=== PATIENT | male | born 1940 | race Two or more races ===

== ENCOUNTER 2020-03-05 11:52 | Inpatient (IN) | payer OTHER ==
[~2020-03-05] VITALS: Ht 167.6 cm; Wt 76.5 kg
[2020-03-05 12:54] LABS: Basophils # (auto) 0 10 ^3/uL (0-0.2); Basophils % (auto) 0.1 % (0.0-2.0); Eosinophils # (auto) 0 10 ^3/uL (0-0.8); Eosinophils % (auto) 0.1 % (0.0-7.0); Hematocrit 50.4 % (41.0-53.0); Hemoglobin 16.9 g/dL (13.5-17.5); Lymphocytes # (auto) 0.7 10 ^3/uL (0.4-5.4); Lymphocytes % (auto) 14.2 % (10.0-50.0); Mean Corpuscular Hemoglobin 29.3 pg (28.0-32.0); Mean Corpuscular Hgb Conc. 33.6 g/dL (32.0-36.0); Mean Corpuscular Volume 87.4 fL (80.0-100.0); Monocytes # (auto) 0.4 10 ^3/uL (0-1.3); Monocytes % (auto) 9.2 % (0.0-12.0); Neutrophils # (auto) 3.7 10 ^3/uL (1.6-8.6); Neutrophils % (auto) 76.4 % (37.0-80.0); Nucleated Red Blood Cells % 0.2 %; Platelet Count (auto) 97 10^3/uL (140-450); Red Blood Cells 5.76 10^6/uL (4.5-5.90); Red Cell Distribution Width 14.3 % (11.8-14.3); White Blood Cell 4.9 10^3/uL (4.4-10.8)
[2020-03-05] MEDS ORDERED: DexAMETHasone SOD PHOS 10MG/1ML VIAL INJ IV ONE (13:30)
[2020-03-05] MEDS ORDERED: SODIUM CHLORIDE 0.9% 1,000 ML IV SCH (14:00)
[2020-03-05] MEDS ORDERED: NITROGLYCERIN 0.4 MG SL TAB SL PRN (14:00)
[2020-03-05] MEDS: ALBUTEROL SULF HFA 90MCG INH 200DOSE IN SCH ×2 (14:00→21:57)
[2020-03-05] MEDS ORDERED: MORPHINE SULF INJ 2 MG/ML SYRINGE 1ML IV PRN ×2 (14:00→14:30)
[2020-03-05] MEDS ORDERED: traMADol HCL 50 MG TAB PO PRN (14:30)
[2020-03-05] MEDS ORDERED: TEMAZEPAM 15 MG CAP PO PRN (14:30)
[2020-03-05] MEDS ORDERED: ONDANSETRON HCL 4 MG/2 ML VIAL IV PRN (14:30)
[2020-03-05] MEDS ORDERED: DEXTROSE (50%) 50ML SYRG IV PRN (14:30)
[2020-03-05 14:52] LABS: Albumin 2.5 g/dL (3.4-5.0); Calcium 7.3 mg/dL (8.5-10.1); Magnesium 2.1 mg/dL (1.6-2.6)
[2020-03-05 15:00] VITALS: BP 148/71
[2020-03-05 15:00] LABS: BUN/Creatinine Ratio 19.6; Bilirubin, Total 0.5 mg/dL (0.2-1.0)
[2020-03-05 15:17] LABS: Urine Bacteria NONE SEEN /hpf (None Seen); Urine Blood 1+ /uL (Negative); Urine Specific Gravity 1.019 (1.001-1.035); Urine WBC 1 /hpf (0 - 3)
[2020-03-05 15:36] LABS: Lactic Acid w/Reflex 2.3 mmol/L (0.4-2.0)
[2020-03-05 16:30] VITALS: BP 138/74
[2020-03-05] MEDS: ACCU-CHEK COMFORT CURVE STRIP VI SCH ×2 (16:37→22:01)
[2020-03-05] MEDS: InsuLIN REG 1unit/0.01ml Soln (100units/ml) SC SCH ×2 (16:37→22:01)
[2020-03-05] MEDS ORDERED: INSUINJ37 SC (19:21)
[2020-03-05] MEDS ORDERED: SITA50TA PO (19:21)
[2020-03-05] MEDS ORDERED: GLIP5TAB12 PO (19:21)
[2020-03-05] MEDS ORDERED: ATOR40TA52 PO (19:21)
[2020-03-05 19:32] VITALS: BP 138/74
--- NOTE | 2020-03-05 20:00 | NUR ---
Opening Shift Note Assumed care of patient. Awake, alert and oriented x4. No S/S of distress/SOB or pain. Instructed on POC and to call for assist PRN. Pt is on room air with even and unlabored respirations. Bed locked, in lowest position, call light within reach, side rails up x2. will continue to monitor for changes Q1hr and PRN.
[2020-03-05] MEDS: FAMOTIDINE 20 MG TAB PO SCH (21:54)
[2020-03-05] MEDS: BUDESONIDE (INHALATION) 180 MCG IH IN SCH (21:57)
[2020-03-05 22:00] VITALS: BP 172/69
[2020-03-06] VITALS (7 sets, daily range): BP systolic 132–160; BP diastolic 68–89
[2020-03-06] MEDS: InsuLIN REG 1unit/0.01ml Soln (100units/ml) SC SCH ×4 (06:36→22:15)
[2020-03-06] MEDS: ACCU-CHEK COMFORT CURVE STRIP VI SCH ×4 (06:37→22:16)
[2020-03-06] MEDS: ALBUTEROL SULF HFA 90MCG INH 200DOSE IN SCH ×3 (06:49→22:33)
[2020-03-06] MEDS: BUDESONIDE (INHALATION) 180 MCG IH IN SCH ×2 (06:50→22:33)
[2020-03-06 07:42] LABS: Basophils # (auto) 0 10 ^3/uL (0-0.2); Basophils % (auto) 0.1 % (0.0-2.0); Eosinophils # (auto) 0 10 ^3/uL (0-0.8); Hematocrit 46.3 % (41.0-53.0); Hemoglobin 15.3 g/dL (13.5-17.5); Lymphocytes # (auto) 0.5 10 ^3/uL (0.4-5.4); Lymphocytes % (auto) 14.6 % (10.0-50.0); Mean Corpuscular Hgb Conc. 33.1 g/dL (32.0-36.0); Mean Corpuscular Volume 87.5 fL (80.0-100.0); Monocytes # (auto) 0.4 10 ^3/uL (0-1.3); Monocytes % (auto) 10.1 % (0.0-12.0); Neutrophils # (auto) 2.6 10 ^3/uL (1.6-8.6); Neutrophils % (auto) 75.2 % (37.0-80.0); Nucleated Red Blood Cells % 0.1 %; Platelet Count (auto) 98 10^3/uL (140-450); Red Blood Cells 5.29 10^6/uL (4.5-5.90); Red Cell Distribution Width 14.1 % (11.8-14.3); White Blood Cell 3.5 10^3/uL (4.4-10.8)
[2020-03-06 07:47] LABS: Albumin 2.3 g/dL (3.4-5.0); Calcium 7.5 mg/dL (8.5-10.1); Potassium 4.3 mmol/L (3.5-5.1)
[2020-03-06 07:50] LABS: BUN/Creatinine Ratio 21.5
[2020-03-06 07:52] LABS: Bilirubin, Total 0.4 mg/dL (0.2-1.0); Total Protein 6.3 g/dL (6.4-8.2)
[2020-03-06] MEDS: ZINC SULFATE 220mg CAP or TAB PO SCH (09:32)
[2020-03-06] MEDS: CHOLECALCIFEROL (VITD3) 2,000 UNIT CAP PO SCH (09:32)
[2020-03-06] MEDS: levoFLOXacin 500MG 100 ML IV SCH (09:32)
[2020-03-06] MEDS: ASCORBIC ACID 1,000 MG TAB PO SCH (09:32)
[2020-03-06] MEDS: FAMOTIDINE 20 MG TAB PO SCH (09:32)
[2020-03-06] MEDS: ENOXAPARIN SOD 30 MG/0.3 ML SYRINGE SC SCH (09:39)
[2020-03-06] MEDS ORDERED: DexAMETHasone SOD PHOS 10MG/1ML VIAL INJ IV SCH (10:00)
--- NOTE | 2020-03-06 14:00 | NUR ---
Paged Dr simeon per Dr Christopher's request to start remdesevir.
--- NOTE | 2020-03-06 17:00 | NUR ---
per dr simeon call pharmacy and see if tod meets criteria for remdesevir
--- NOTE | 2020-03-06 17:46 | NUR ---
Per pharmacist patient does not meet criteria for remdesevir. Patient o2 sat 96% on room air, no fever.
--- NOTE | 2020-03-07 01:45 | NUR ---
Received report Received report from CHRISTOPHER Singh RN. Patient is resting in bed comfortably, patient given pillow for added comfort. No s/s of pain, SOB, or distress noted at this time. Discussed plan of care with patient. Call light within reach, HOB semi fowlers, bed in lowest locked position x2 side rails up. Will continue to monitor.
[2020-03-07 05:00] VITALS: BP 155/88
[2020-03-07] MEDS: ACCU-CHEK COMFORT CURVE STRIP VI SCH ×4 (06:34→21:34)
[2020-03-07] MEDS: InsuLIN REG 1unit/0.01ml Soln (100units/ml) SC SCH ×4 (06:37→21:44)
[2020-03-07 06:47] LABS: Potassium 4.4 mmol/L (3.5-5.1)
[2020-03-07 06:59] LABS: Albumin 2.7 g/dL (3.4-5.0); BUN/Creatinine Ratio 25.4; Bilirubin, Total 0.4 mg/dL (0.2-1.0); Calcium 8.2 mg/dL (8.5-10.1); Total Protein 6.8 g/dL (6.4-8.2)
[2020-03-07] MEDS: ALBUTEROL SULF HFA 90MCG INH 200DOSE IN SCH ×3 (07:27→22:08)
[2020-03-07] MEDS: BUDESONIDE (INHALATION) 180 MCG IH IN SCH ×2 (07:28→22:08)
[2020-03-07 09:00] VITALS: BP 143/73
[2020-03-07] MEDS: levoFLOXacin 500MG 100 ML IV SCH (09:22)
[2020-03-07] MEDS: ZINC SULFATE 220mg CAP or TAB PO SCH (09:22)
[2020-03-07] MEDS: ASCORBIC ACID 1,000 MG TAB PO SCH (09:23)
[2020-03-07] MEDS: CHOLECALCIFEROL (VITD3) 2,000 UNIT CAP PO SCH (09:23)
[2020-03-07] MEDS: FAMOTIDINE 20 MG TAB PO SCH (09:23)
[2020-03-07] MEDS: ENOXAPARIN SOD 30 MG/0.3 ML SYRINGE SC SCH (09:23)
--- NOTE | 2020-03-07 12:40 | NUR ---
PATIENTS OXYGEN SATURATIONS WHEN AMBULATING AT 78%. INSTRUCTED TO WEAR OXYGEN 2L NC WHEN AMBULATING.
--- NOTE | 2020-03-07 12:53 | NUR ---
SPOKE TO Julian JAIMES. INFORMED OF PATIENT STATUS INCLUDING DESATURATION TO 78% DURING AMBULATION. RECEIVED NEW ORDERS. SEE EMAR.
--- NOTE | 2020-03-07 12:55 | NUR ---
REPORT GIVEN TO PASCALE CHEN.
[2020-03-07 13:00] VITALS: BP 137/77
--- NOTE | 2020-03-07 13:00 | NUR ---
RECEIVED REPORT FROM NEHAL Lacey RN. [facility]
[2020-03-07] MEDS ORDERED: DexAMETHasone 4 MG TAB PO ONE (13:15)
--- NOTE | 2020-03-07 13:15 | NUR ---
PT IS ALERT ORIENTED X4, RESTING IN BED COMFORTABLY, IN ROOM AIR, NO DSITRESS NOTED, ABLE TO VERBALIS HIS DEMANDS, SELF REPOSITION, CALL LIGHT WITHIN REACH, CONTINUE CARE
[2020-03-07 17:00] VITALS: BP 148/67
--- NOTE | 2020-03-07 18:25 | NUR ---
PT CONTINUE STABLE, CONTINUE MONITORING
[2020-03-07] MEDS: INSULIN LANTUS (GLARGINE) 1 /0.01ml (100units/ml) SC SCH (21:44)
[2020-03-07 22:07] VITALS: BP 156/91
[2020-03-07] MEDS: ACETAMINOPHEN 500 MG TAB PO PRN (23:28)
[2020-03-08] MEDS: cloNIDine HCL 0.1 MG TAB PO PRN (05:25)
[2020-03-08] MEDS: ACCU-CHEK COMFORT CURVE STRIP VI SCH ×4 (06:01→21:12)
[2020-03-08] MEDS: INSULIN LANTUS (GLARGINE) 1 /0.01ml (100units/ml) SC SCH ×2 (06:02→21:15)
[2020-03-08] MEDS: InsuLIN REG 1unit/0.01ml Soln (100units/ml) SC SCH ×4 (06:02→21:15)
--- NOTE | 2020-03-08 07:13 | NUR ---
closing note pt resting in semi fowlers with HOB at 30 degrees. no s/s of respiratory distress at this time. no c/o pain. endorsed care to day shift RN Akila.
[2020-03-08 08:00] VITALS: BP 155/87
--- NOTE | 2020-03-08 08:00 | NUR ---
ASSESSMENT NOTE PT IS ALERT ORIENTED X4, RESTING IN BED COMFORTABLY, IN ROOM AIR, NO DISTRESS NOTED, ABLE TO SELF REPOSITION AND VERBALIS HIS NEEDS, PT IS BILINGUAL ABLE TO UNDERSTAND INDONESIAN, FALL RISK PRECAUTIONS, CALL LIGHT WITHIN REACH
[2020-03-08] MEDS: ALBUTEROL SULF HFA 90MCG INH 200DOSE IN SCH ×3 (08:04→22:18)
[2020-03-08] MEDS: BUDESONIDE (INHALATION) 180 MCG IH IN SCH ×2 (08:04→22:18)
[2020-03-08 09:03] VITALS: BP 154/84
[2020-03-08] MEDS: DexAMETHasone 4 MG TAB PO SCH (09:24)
[2020-03-08] MEDS: ZINC SULFATE 220mg CAP or TAB PO SCH (09:24)
[2020-03-08] MEDS: FAMOTIDINE 20 MG TAB PO SCH (09:24)
[2020-03-08] MEDS: ASCORBIC ACID 1,000 MG TAB PO SCH (09:25)
[2020-03-08] MEDS: CHOLECALCIFEROL (VITD3) 2,000 UNIT CAP PO SCH (09:25)
[2020-03-08] MEDS: ENOXAPARIN SOD 30 MG/0.3 ML SYRINGE SC SCH (09:25)
--- NOTE | 2020-03-08 11:00 | NUR ---
ROOM AIR SATURATION PT AMBULATED AROUND IN HIS ROOM, AND OUT OF HIS ROOM, SAT AT 85 % IN ROOM AIR 3 L NC APPLIED PT SAT ON 93%
--- NOTE | 2020-03-08 11:44 | NUR ---
Nutrition Assessment Est energy needs 1510- 1888 kcal (20-25 kcal/kg BW 75.5kg) Est protein needs 60-76g (0.8-1g/kg BW 75.5kg) Will reassess prn. Addendum: 03/08/20 at [address] Amended: Links added.
--- NOTE | 2020-03-08 12:00 | NUR ---
DR JAIMES AT BED SIDE FOLLOWING UP ON PT, INFORM PT THAT HE WILL ORDER A CTA AND FOR POSSIBLE DISCHARGE TOMORROW, DR JAIMES ENCOURAGE PT TO CONTINUE USE THE INCENTIVE SPIROMETER
[2020-03-08 12:26] VITALS: BP 147/87
--- NOTE | 2020-03-08 15:15 | NUR ---
OUT TO RADIOLOGY VIA WHEELCHAIR FOR CHEST CT AND VENOUS DOPPLER
--- NOTE | 2020-03-08 16:09 | NUR ---
PAGE DR JAIMES REGARDING VENOUS DOPPLER RESULTS
--- NOTE | 2020-03-08 16:10 | NUR ---
PT IS BACK TO HIS ROOM, STABLE, OXYGEN 3 NC, CONTINUE MONITORING
--- NOTE | 2020-03-08 16:26 | NUR ---
DR JAIMES CALLED BACK SAID TO D/C LOVENOX, AND HAVE PHARMACY PUT THE DVT DOSE FOR LOVENOX
[2020-03-08 16:41] VITALS: BP 146/83
--- NOTE | 2020-03-08 18:32 | NUR ---
PT CONTINUE STABLE, CONTINUE MONITORING
[2020-03-08 20:37] VITALS: BP 146/83
[2020-03-08 21:30] VITALS: BP 129/71
[2020-03-09] MEDS: cloNIDine HCL 0.1 MG TAB PO PRN ×3 (04:55→22:39)
[2020-03-09 05:00] VITALS: BP 166/85
[2020-03-09] MEDS: ACCU-CHEK COMFORT CURVE STRIP VI SCH ×4 (06:07→22:13)
[2020-03-09] MEDS: ALBUTEROL SULF HFA 90MCG INH 200DOSE IN SCH ×3 (06:09→21:53)
[2020-03-09] MEDS: BUDESONIDE (INHALATION) 180 MCG IH IN SCH ×2 (06:09→21:53)
[2020-03-09] MEDS: InsuLIN REG 1unit/0.01ml Soln (100units/ml) SC SCH ×4 (06:10→22:14)
[2020-03-09] MEDS: INSULIN LANTUS (GLARGINE) 1 /0.01ml (100units/ml) SC SCH ×2 (06:10→22:14)
[2020-03-09 06:12] LABS: Basophils # (auto) 0 10 ^3/uL (0-0.2); Basophils % (auto) 0.1 % (0.0-2.0); Eosinophils # (auto) 0 10 ^3/uL (0-0.8); Hematocrit 49.8 % (41.0-53.0); Hemoglobin 16.6 g/dL (13.5-17.5); Lymphocytes # (auto) 0.4 10 ^3/uL (0.4-5.4); Lymphocytes % (auto) 5.1 % (10.0-50.0); Mean Corpuscular Hemoglobin 29.1 pg (28.0-32.0); Mean Corpuscular Hgb Conc. 33.4 g/dL (32.0-36.0); Mean Corpuscular Volume 87.1 fL (80.0-100.0); Monocytes # (auto) 0.4 10 ^3/uL (0-1.3); Monocytes % (auto) 6.4 % (0.0-12.0); Neutrophils # (auto) 6.1 10 ^3/uL (1.6-8.6); Neutrophils % (auto) 88.4 % (37.0-80.0); Nucleated Red Blood Cells % 0.1 %; Platelet Count (auto) 148 10^3/uL (140-450); Red Blood Cells 5.72 10^6/uL (4.5-5.90); Red Cell Distribution Width 14.2 % (11.8-14.3); White Blood Cell 6.9 10^3/uL (4.4-10.8)
[2020-03-09 06:36] LABS: Potassium 4.6 mmol/L (3.5-5.1)
[2020-03-09 06:44] LABS: BUN/Creatinine Ratio 26.9; Calcium 8.7 mg/dL (8.5-10.1)
--- NOTE | 2020-03-09 07:20 | NUR ---
closing note pt resting in semi fowlers with HOB at 30 degrees. pt is on 6L simple mask. o2 saturation is 93%. endorsed care to day shift RN Maria Luisa.
--- NOTE | 2020-03-09 07:40 | NUR ---
OPENING NOTES ASSUMED CARE OF PT. ALERT AND ORIENTED. NO S/S OF SOB/DISTRESS NOTED. BED SET TO LOWEST POSITION/LOCKED. BEDSIDE RAILS UP X2. CALL LIGHT WITHIN REACH. INSTRUCTED PT TO CALL FOR ASSISTANCE. UPDATED ON POC. PT VERBALIZED UNDERSTANDING. WILL CONTINUE TO MONITOR Q1HR AND PRN FOR CHANGES.
[2020-03-09 09:00] VITALS: BP 154/89
[2020-03-09] MEDS: ZINC SULFATE 220mg CAP or TAB PO SCH (09:25)
[2020-03-09] MEDS: DexAMETHasone 4 MG TAB PO SCH (09:25)
[2020-03-09] MEDS: levoFLOXacin 500MG 100 ML IV SCH (09:25)
[2020-03-09] MEDS: FAMOTIDINE 20 MG TAB PO SCH (09:26)
[2020-03-09] MEDS: ASCORBIC ACID 1,000 MG TAB PO SCH (09:26)
[2020-03-09] MEDS: CHOLECALCIFEROL (VITD3) 2,000 UNIT CAP PO SCH (09:26)
[2020-03-09] MEDS: ENOXAPARIN SOD 80 MG/0.8ML SYRINGE SC SCH (09:27)
[2020-03-09 13:00] VITALS: BP 150/86
[2020-03-09 17:00] VITALS: BP 164/100
[2020-03-09] MEDS: ACETAMINOPHEN 500 MG TAB PO PRN (18:03)
--- NOTE | 2020-03-09 19:40 | NUR ---
Opening Shift Note Assumed care of patient, awake and alert x4. Patient denies pain or shortness of breath at this time. No sign/symptoms of distress noted or verbalized at this time. Instructed on plan of care and encouraged patient to call for assistance as needed, patient verbalized understanding. Incentive spirometer noted at the bedside, encouraged patient to use incentive spirometer at least 10 times every hour, while awake, patient verbalized understanding. Bed is locked in lowest position, side rails x2 are up, call light is within reach, and bed alarm is on.
[2020-03-09 22:00] VITALS: BP 165/95
--- NOTE | 2020-03-09 23:07 | NUR ---
Received Call From Dr. Sanchez Received call from Dr. Sanchez and updated on patient status. Orders received to start patient on Remdesivir 200 mg IV piggyback over 2 hours on day 1 and Remdesivir 100mg IV piggyback over 2 hours days 2-5. Dr. Sanchez made aware that pharmacy is gone for the night. Per Dr. Sanchez okay to start Remdesivir in the morning. Orders read back and verified. Will carry out orders as received.
[2020-03-10 05:00] VITALS: BP 165/91
[2020-03-10] MEDS: cloNIDine HCL 0.1 MG TAB PO PRN ×2 (05:20→18:36)
[2020-03-10] MEDS: INSULIN LANTUS (GLARGINE) 1 /0.01ml (100units/ml) SC SCH ×2 (06:13→21:13)
[2020-03-10] MEDS: ACCU-CHEK COMFORT CURVE STRIP VI SCH ×4 (06:13→21:10)
[2020-03-10] MEDS: InsuLIN REG 1unit/0.01ml Soln (100units/ml) SC SCH ×4 (06:14→21:14)
--- NOTE | 2020-03-10 06:20 | NUR ---
Placed on Oxymizer Patient's oxygen saturation sustaining between 89-91% on 6L/min NC. Patient placed on Oxymizer 6L/min. SPO2 increased to 95%.
[2020-03-10] MEDS: ALBUTEROL SULF HFA 90MCG INH 200DOSE IN SCH ×3 (06:37→20:43)
[2020-03-10] MEDS: BUDESONIDE (INHALATION) 180 MCG IH IN SCH ×2 (06:37→20:43)
--- NOTE | 2020-03-10 06:46 | NUR ---
Tim Spoke with pharmacist Noe regarding order received from Dr. Sanchez to start patient on Remdesivir today. Per pharmacist Noe, he will start the process.
--- NOTE | 2020-03-10 06:50 | NUR ---
VQ Scan Attempted to call nuclear medicine regarding pending VQ scan. Left message to give this RN a call back.
[2020-03-10 07:56] LABS: Calcium 8.8 mg/dL (8.5-10.1); Potassium 5.1 mmol/L (3.5-5.1)
[2020-03-10 08:00] VITALS: BP 144/79
[2020-03-10 08:08] LABS: BUN/Creatinine Ratio 30.2; CRP High Sensitivity 3.27 mg/dL (< 0.3)
--- NOTE | 2020-03-10 09:20 | NUR ---
VQ SCAN CALLED [facility] RE: VQ SCAN. PER NM TECH THEY WILL TRY AND DO THE SCAN, BUT WILL BE A UNDIAGNOSTIC SCAN.
[2020-03-10] MEDS: DexAMETHasone 4 MG TAB PO SCH (10:29)
[2020-03-10] MEDS: ZINC SULFATE 220mg CAP or TAB PO SCH (10:29)
[2020-03-10] MEDS: ENOXAPARIN SOD 80 MG/0.8ML SYRINGE SC SCH (10:30)
[2020-03-10] MEDS: ASCORBIC ACID 1,000 MG TAB PO SCH (10:30)
[2020-03-10] MEDS: FAMOTIDINE 20 MG TAB PO SCH (10:30)
[2020-03-10] MEDS: CHOLECALCIFEROL (VITD3) 2,000 UNIT CAP PO SCH (10:30)
[2020-03-10] MEDS: ACETAMINOPHEN 500 MG TAB PO PRN (11:52)
[2020-03-10 12:00] VITALS: BP 154/79
--- NOTE | 2020-03-10 15:08 | NUR ---
Assessment Patient is a 79-year-old male, who is alert and orient. Patient cognitive abilities are intact. Patient stated prior to admission at [facility] he is ambulatory, patient stated that he can do all ADLs independently. Patient stated that he lives with his (Arlette [phone]). Patient stated that he is retired and has social security for monthly income. Patient stated that he will return home post discharge. Patient stated that his has transportation for post discharge. Patient stated that his and family is his support system. Patient stated that his is receptive to receive information on Advance Directive. Discharge planning: Patient will follow up with PCP for post discharge diagnosis. SW will provide Advance Directive forms for patient to fill out. Patient has no post discharge needs identified at this moment. Addendum: 03/10/20 at 1508 by TRAVIS MEDEIROS Amended: Links added.
[2020-03-10 17:00] VITALS: BP 160/95
[2020-03-10] MEDS ORDERED: REMDESIVIR 200 MG in NS 210ml LOADING DOSE ADULT IV ONE (17:00)
--- NOTE | 2020-03-10 17:15 | NUR ---
REMDESIVIR PRE-INFUSION VS BP: 160/95 MMHG HR: 72 BPM SPO2: 99% WILL CONTINUE TO MONITOR.
--- NOTE | 2020-03-10 17:30 | NUR ---
REMDESIVIR 15 MIN-INFUSION VS BP: 158/89 MMHG HR: 63 BPM SPO2: 99% NO S/S OF SOB/DISTRESS NOTED. WILL CONTINUE TO MONITOR.
--- NOTE | 2020-03-10 18:31 | NUR ---
REMDESIVIR POST-INFUSION VS BP: 182/86 MMHG HR: 66 BPM SPO2: 95% NO S/S OF SOB/DISTRESS NOTED. WILL CONTINUE TO MONITOR.
[2020-03-10] MEDS ORDERED: DOCUSATE SOD 100 MG CAP PO PRN (20:00)
--- NOTE | 2020-03-10 21:33 | NUR ---
Spoke with Dr. Díaz RE: Critical Blood Sugar Dr. Díaz made aware that patient's blood sugar is 417 and has received 10 units of Lantus and 10 units of Insulin R per sliding scale. Dr. Díaz made aware that patient is on a mild sliding scale ACHS. Per Dr. Díaz follow protocol. Protocol has been initiated and followed. No new orders received at this time. Will continue to monitor patient. Patient denies excessive thirst, blurry vision, dizziness, or headache at this time. Addendum: 03/10/20 at 2206 by CHELSEA HAY RN RN Dr. Díaz is covering for Katelyn Farris
[2020-03-10 22:00] VITALS: BP 155/100
--- NOTE | 2020-03-10 22:30 | NUR ---
Dr. Sanchez at Bedside Dr. Sanchez at bedside.
--- NOTE | 2020-03-11 00:16 | NUR ---
Blood Sugar Reassessment Blood sugar rechecked and found to be 314 at this time.
[2020-03-11 04:52] VITALS: BP 156/85
[2020-03-11] MEDS: InsuLIN REG 1unit/0.01ml Soln (100units/ml) SC SCH ×4 (06:06→23:16)
[2020-03-11] MEDS: INSULIN LANTUS (GLARGINE) 1 /0.01ml (100units/ml) SC SCH ×2 (06:07→23:16)
[2020-03-11] MEDS: ACCU-CHEK COMFORT CURVE STRIP VI SCH ×4 (06:10→23:12)
[2020-03-11] MEDS: ALBUTEROL SULF HFA 90MCG INH 200DOSE IN SCH ×3 (06:52→21:43)
[2020-03-11] MEDS: BUDESONIDE (INHALATION) 180 MCG IH IN SCH ×2 (06:52→21:43)
[2020-03-11 07:07] LABS: Albumin 2.3 g/dL (3.4-5.0); BUN/Creatinine Ratio 29.9; Calcium 8.7 mg/dL (8.5-10.1); Potassium 4.9 mmol/L (3.5-5.1)
[2020-03-11 07:10] LABS: Bilirubin, Total 0.5 mg/dL (0.2-1.0); Total Protein 6.5 g/dL (6.4-8.2)
[2020-03-11 08:55] VITALS: BP 154/76
[2020-03-11] MEDS: ACETAMINOPHEN 500 MG TAB PO PRN (09:19)
[2020-03-11] MEDS: DexAMETHasone 4 MG TAB PO SCH (09:44)
[2020-03-11] MEDS: ZINC SULFATE 220mg CAP or TAB PO SCH (09:44)
[2020-03-11] MEDS: FAMOTIDINE 20 MG TAB PO SCH (09:44)
[2020-03-11] MEDS: levoFLOXacin 500MG 100 ML IV SCH (09:44)
[2020-03-11] MEDS: ENOXAPARIN SOD 80 MG/0.8ML SYRINGE SC SCH (09:45)
[2020-03-11] MEDS: ASCORBIC ACID 1,000 MG TAB PO SCH (09:45)
[2020-03-11] MEDS: CHOLECALCIFEROL (VITD3) 2,000 UNIT CAP PO SCH (09:45)
--- NOTE | 2020-03-11 10:32 | NUR ---
patient family called for information regarding patient, however no password has been set up, I let the family know that they could call the patient and create a password and then I would be able to discuss the patient. Family stated they just spoke to him and he sounded tired so they would call back later and make a password.
[2020-03-11] MEDS ORDERED: INSULIN LANTUS (GLARGINE) 1 /0.01ml (100units/ml) SC ONE (13:00)
[2020-03-11] MEDS ORDERED: amLODIPine BESYLATE 5 MG TAB PO ONE (13:00)
[2020-03-11] MEDS ORDERED: POLYETHYLENE GLYCOL 17 GM PWDR PO PRN (13:00)
--- NOTE | 2020-03-11 14:16 | NUR ---
Nutrition Followup Note: Wt 74.1 kg Pt is covid positive in isolation. pt is currently on CCHO 45 gm diet with adequate Po of > 75% x 4 per RN doc. Est energy needs 1510- 1888 kcal (20-25 kcal/kg BW 75.5kg) Est protein needs 60-76g (0.8-1g/kg BW 75.5kg) Will reassess prn. Labs: ALB 2.3 L, BUN 59 H CREAT 1.97 H GLU 227 H BM: Pt with 1 BM today per Rn note Skin: BS 21 low risk, full details in menagerie caretaker note PES: Altered nutrition related lab values r.t current chronic medical condition aeb elevated RFTs, hyperglycemia, hopalb Comments: Will continue to mobnitor PO intake, skin status, labs. F/u mod 3-5 days Rec: 1) refer to CDE on DC 2) continue current plan of care
[2020-03-11] MEDS: REMDESIVIR 100mg in NS 230ml DAILYx4DAYS (NO VENT) IV SCH (16:52)
[2020-03-11 17:00] VITALS: BP 145/75
[2020-03-11 17:05] VITALS: BP 138/71
[2020-03-11] MEDS: ATORVASTATIN 20 MG TAB PO SCH (17:35)
--- NOTE | 2020-03-11 18:13 | NUR ---
patient completed dose of Remdesevir without incidence
--- NOTE | 2020-03-11 21:43 | NUR ---
PT RINSED OUT HIS MOUTH POST PULMICORT TX Addendum: 03/11/20 at 2315 by SHAMAR CHINO RT Amended: Links added.
[2020-03-11 22:00] VITALS: BP 153/89
[2020-03-12 00:56] VITALS: BP 153/87
[2020-03-12 05:00] VITALS: BP 137/81
[2020-03-12 06:36] LABS: Albumin 2.2 g/dL (3.4-5.0); BUN/Creatinine Ratio 29.3; Calcium 8.7 mg/dL (8.5-10.1); Potassium 4.6 mmol/L (3.5-5.1)
[2020-03-12 06:39] LABS: Bilirubin, Total 0.7 mg/dL (0.2-1.0); Total Protein 6.4 g/dL (6.4-8.2)
[2020-03-12] MEDS: InsuLIN REG 1unit/0.01ml Soln (100units/ml) SC SCH ×4 (07:00→21:38)
[2020-03-12] MEDS: ACCU-CHEK COMFORT CURVE STRIP VI SCH ×4 (07:08→21:32)
[2020-03-12] MEDS: INSULIN LANTUS (GLARGINE) 1 /0.01ml (100units/ml) SC SCH ×2 (07:11→21:37)
[2020-03-12 09:00] VITALS: BP 145/92
[2020-03-12] MEDS: amLODIPine BESYLATE 5 MG TAB PO SCH (09:32)
[2020-03-12] MEDS: FAMOTIDINE 20 MG TAB PO SCH (09:32)
[2020-03-12] MEDS: DexAMETHasone 4 MG TAB PO SCH (09:32)
[2020-03-12] MEDS: CHOLECALCIFEROL (VITD3) 2,000 UNIT CAP PO SCH (09:32)
[2020-03-12] MEDS: ASCORBIC ACID 1,000 MG TAB PO SCH (09:32)
[2020-03-12] MEDS: ZINC SULFATE 220mg CAP or TAB PO SCH (09:32)
[2020-03-12] MEDS: ENOXAPARIN SOD 80 MG/0.8ML SYRINGE SC SCH (09:33)
[2020-03-12] MEDS: ALBUTEROL SULF HFA 90MCG INH 200DOSE IN SCH ×3 (09:34→20:44)
[2020-03-12] MEDS: BUDESONIDE (INHALATION) 180 MCG IH IN SCH ×2 (09:34→20:44)
[2020-03-12 13:00] VITALS: BP 151/79
--- NOTE | 2020-03-12 16:15 | NUR ---
PATIENT CONSENTED ON [facility]ASMA AND IS IN AGREEMENT.
--- NOTE | 2020-03-12 16:45 | NUR ---
PER DR CLEMENTE, CALL HIM WHEN PLASMA BECOMES AVAILABLE AND HE WILL DETERMINE IF PATIENT NEEDS IT. (ORDER ENTERED COMMUNICATION ORDER)
[2020-03-12 17:00] VITALS: BP 148/83
[2020-03-12] MEDS: ATORVASTATIN 20 MG TAB PO SCH (17:08)
[2020-03-12] MEDS: REMDESIVIR 100mg in NS 230ml DAILYx4DAYS (NO VENT) IV SCH (17:08)
[2020-03-12] MEDS: ACETAMINOPHEN 500 MG TAB PO PRN (19:58)
[2020-03-12 22:00] VITALS: BP 159/83
[2020-03-13 05:00] VITALS: BP 139/80
--- NOTE | 2020-03-13 06:03 | NUR ---
DR CLEMENTE PAGED PLASMA IS AVAILABLE , PER COMMUNICATION ORDER, WAS TO BE PAGED BEFORE ADMINISTRATING PLASMA TO DETERMINE WHETHER PATIENT NEEDS TO BE INFUSED.
[2020-03-13] MEDS: ALBUTEROL SULF HFA 90MCG INH 200DOSE IN SCH ×3 (06:15→23:00)
[2020-03-13] MEDS: BUDESONIDE (INHALATION) 180 MCG IH IN SCH ×2 (06:15→23:00)
[2020-03-13] MEDS: ACCU-CHEK COMFORT CURVE STRIP VI SCH ×4 (06:24→21:46)
[2020-03-13] MEDS: InsuLIN REG 1unit/0.01ml Soln (100units/ml) SC SCH ×4 (06:24→21:50)
[2020-03-13] MEDS: INSULIN LANTUS (GLARGINE) 1 /0.01ml (100units/ml) SC SCH ×2 (06:29→21:49)
[2020-03-13 09:00] VITALS: BP 134/71
[2020-03-13] MEDS: FAMOTIDINE 20 MG TAB PO SCH (10:25)
[2020-03-13] MEDS: DexAMETHasone 4 MG TAB PO SCH (10:25)
[2020-03-13] MEDS: ENOXAPARIN SOD 80 MG/0.8ML SYRINGE SC SCH (10:26)
[2020-03-13] MEDS: CHOLECALCIFEROL (VITD3) 2,000 UNIT CAP PO SCH (10:26)
[2020-03-13] MEDS: levoFLOXacin 500MG 100 ML IV SCH (10:26)
[2020-03-13] MEDS: ZINC SULFATE 220mg CAP or TAB PO SCH (10:26)
[2020-03-13] MEDS: ASCORBIC ACID 1,000 MG TAB PO SCH (10:26)
[2020-03-13] MEDS: amLODIPine BESYLATE 5 MG TAB PO SCH (10:36)
[2020-03-13 11:29] LABS: Basophils # (auto) 0 10 ^3/uL (0-0.2); Basophils % (auto) 0.2 % (0.0-2.0); Eosinophils # (auto) 0 10 ^3/uL (0-0.8); Eosinophils % (auto) 0.4 % (0.0-7.0); Hematocrit 49.1 % (41.0-53.0); Hemoglobin 16.7 g/dL (13.5-17.5); Lymphocytes # (auto) 0.4 10 ^3/uL (0.4-5.4); Lymphocytes % (auto) 3.5 % (10.0-50.0); Mean Corpuscular Hemoglobin 29.2 pg (28.0-32.0); Mean Corpuscular Volume 85.9 fL (80.0-100.0); Monocytes # (auto) 0.4 10 ^3/uL (0-1.3); Monocytes % (auto) 4.3 % (0.0-12.0); Neutrophils # (auto) 9.6 10 ^3/uL (1.6-8.6); Neutrophils % (auto) 91.6 % (37.0-80.0); Nucleated Red Blood Cells % 0.6 %; Platelet Count (auto) 178 10^3/uL (140-450); Red Blood Cells 5.72 10^6/uL (4.5-5.90); Red Cell Distribution Width 14.3 % (11.8-14.3); White Blood Cell 10.5 10^3/uL (4.4-10.8)
[2020-03-13 11:46] LABS: Albumin 2.1 g/dL (3.4-5.0); Calcium 8.7 mg/dL (8.5-10.1); Potassium 4.8 mmol/L (3.5-5.1)
[2020-03-13 11:49] LABS: BUN/Creatinine Ratio 35.6; Bilirubin, Total 0.6 mg/dL (0.2-1.0); Total Protein 6.3 g/dL (6.4-8.2)
[2020-03-13 13:00] VITALS: BP 123/82
[2020-03-13 13:11] VITALS: BP 123/82
[2020-03-13 17:00] VITALS: BP 145/84
[2020-03-13] MEDS: REMDESIVIR 100mg in NS 230ml DAILYx4DAYS (NO VENT) IV SCH (17:18)
[2020-03-13] MEDS: ATORVASTATIN 20 MG TAB PO SCH (17:26)
[2020-03-13] MEDS: ACETAMINOPHEN 500 MG TAB PO PRN (18:50)
[2020-03-13 22:00] VITALS: BP 141/72
[2020-03-14 05:00] VITALS: BP 158/85
[2020-03-14] MEDS: ACCU-CHEK COMFORT CURVE STRIP VI SCH ×3 (06:39→16:38)
[2020-03-14] MEDS: INSULIN LANTUS (GLARGINE) 1 /0.01ml (100units/ml) SC SCH (06:44)
[2020-03-14] MEDS: InsuLIN REG 1unit/0.01ml Soln (100units/ml) SC SCH ×3 (06:45→16:39)
[2020-03-14] MEDS: ALBUTEROL SULF HFA 90MCG INH 200DOSE IN SCH ×4 (07:12→20:33)
[2020-03-14] MEDS: BUDESONIDE (INHALATION) 180 MCG IH IN SCH ×2 (07:12→20:33)
[2020-03-14 07:27] LABS: Potassium 4.7 mmol/L (3.5-5.1)
[2020-03-14 07:33] LABS: Albumin 2.3 g/dL (3.4-5.0); BUN/Creatinine Ratio 30.7; Calcium 8.7 mg/dL (8.5-10.1)
[2020-03-14 07:39] LABS: Bilirubin, Total 0.7 mg/dL (0.2-1.0); Total Protein 6.6 g/dL (6.4-8.2)
[2020-03-14 09:00] VITALS: BP 160/72
[2020-03-14] MEDS: ZINC SULFATE 220mg CAP or TAB PO SCH (10:50)
[2020-03-14] MEDS: ASCORBIC ACID 1,000 MG TAB PO SCH (10:50)
[2020-03-14] MEDS: DexAMETHasone 4 MG TAB PO SCH (10:50)
[2020-03-14] MEDS: FAMOTIDINE 20 MG TAB PO SCH (10:50)
[2020-03-14] MEDS: ENOXAPARIN SOD 80 MG/0.8ML SYRINGE SC SCH (10:51)
[2020-03-14] MEDS: CHOLECALCIFEROL (VITD3) 2,000 UNIT CAP PO SCH (10:51)
[2020-03-14] MEDS: amLODIPine BESYLATE 5 MG TAB PO SCH (10:52)
--- NOTE | 2020-03-14 12:47 | NUR ---
Nutrition Followup Note: Wt 76.5kg Pt is still covid positive. Pt is in covid isolation wing unable to reach pt through pt room phone. Pt is with a good appetite aeb pt with 86% of po intake x 2 days per RN note. Est energy needs 1510- 1888 kcal (20-25 kcal/kg BW 75.5kg) Est protein needs 60-76g (0.8-1g/kg BW 75.5kg) Will reassess prn. Labs: ALB 2.3 L, BUN 61H, Creat 1.99H, GLUC 197H BM: Pt with 1 BM 03/13 per Rn note Skin: BS 21 low risk, full details in care clinician note PES: Altered nutrition related lab values r.t current chronic medical condition aeb elevated RFTs, hyperglycemia, hopalb Comments: Will continue to mobnitor PO intake, skin status, labs. F/u mod 3-5 days Rec: 1) refer to CDE on DC 2) continue current plan of care
[2020-03-14 13:00] VITALS: BP 150/76
[2020-03-14 13:12] LABS: Hematocrit 52.5 % (41.0-53.0); Hemoglobin 16.9 g/dL (13.5-17.5); Mean Corpuscular Hemoglobin 28.4 pg (28.0-32.0); Mean Corpuscular Hgb Conc. 32.3 g/dL (32.0-36.0); Platelet Count (auto) 203 10^3/uL (140-450); Red Blood Cells 5.97 10^6/uL (4.5-5.90); Red Cell Distribution Width 14.4 % (11.8-14.3); White Blood Cell 9.6 10^3/uL (4.4-10.8)
[2020-03-14 13:47] LABS: Basophils % (manual) 0 (0.0-2.0); Blast Cells 0; Promyelocytes % 0; Reactive Lymphocytes 0
--- NOTE | 2020-03-14 14:36 | NUR ---
ALBUTEROL MDI THERAPY HELD AT THIS TIME DUE TO PT WITH OCCASIONAL RUNS OF TACHYCARDIA 130'S. BREATH SOUNDS CLEAR/DIM T/O. SPO2 93% ON 10LPM OXYMIZER. NO S/S OF DISTRESS. RN MADE AWARE.
[2020-03-14 14:52] LABS: Band Neutrophils % (manual) 1; Eosinophils % (manual) 1 (0-7); Lymphocytes % (manual) 4 (10.0-50.0); Metamyelocytes % 1; Monocytes % (manual) 4 (0-12); Myelocytes % 2
--- NOTE | 2020-03-14 16:00 | NUR ---
PAGED DR Shahid CERVANTES TO NOTIFY HIM OF FIB RVR.
--- NOTE | 2020-03-14 16:30 | NUR ---
PAGED DR Shahid CERVANTES TO NOTIFY HIM OF A FIB RVR HEART RATE 130-165. NO SIGNS OF DISTRESS BP 134/77
[2020-03-14 17:00] VITALS: BP 134/77
[2020-03-14] MEDS: REMDESIVIR 100mg in NS 230ml DAILYx4DAYS (NO VENT) IV SCH (17:00)
[2020-03-14] MEDS ORDERED: METOPROLOL TARTRATE 25 MG TAB PO SCH (17:00)
[2020-03-14] MEDS: ATORVASTATIN 20 MG TAB PO SCH (17:30)
[2020-03-14] MEDS ORDERED: APIXABAN 5 MG TAB PO SCH (17:30)
[2020-03-14 17:33] VITALS: BP 134/77
--- NOTE | 2020-03-14 19:33 | NUR ---
Spoke with Dr. Díaz RE: Heart Rate Dr. Díaz who is covering for ShahidDandre Анна was notified that patient is in atrial fibrillation with heart rate sustaining between 130s-140s. Dr. Díaz made aware that patient received Lopressor 25mg PO at 17:[address] Díaz also made aware that patient has a discharge order to go home with [facility] hosp[facility] tonight at 20:30. Per Dr. Díaz okay to send patient home tonight with hospice with current heart rate. No new orders received at this time. Patient is laying in bed with even and unlabored respirations. No sign/symptoms of distress noted or verbalized at this time. Patient denies pain or shortness of breath at this time.
--- NOTE | 2020-03-14 20:33 | NUR ---
Discharge Discharge instructions given as ordered by day shift RN Laura and reinforced by this RN. Encourage to follow up with primary care provider as instructed. All questions and concerns addressed. Patient verbalized understanding. Medication reconciliation form completed and copy given to patient. IV removed with catheter intact, pressure dressing applied. Telemetry unit returned to ICU. Patient transported by [facility] with all personal belongings on 10L/min Oxymizer. No sign/symptoms of distress noted at time of departure.
[2020-03-15] MEDS ORDERED: ZINC220T6 PO (15:56)
[2020-03-15] MEDS ORDERED: METO25TA5 PO (15:56)
[2020-03-15] MEDS ORDERED: DEXA6TAB6 PO (15:56)
[2020-03-15] MEDS ORDERED: APIX5TAB OR (15:56)
[2020-03-15] MEDS ORDERED: ASCO500T11 GT (15:56)
[2020-03-15] MEDS ORDERED: LEVO500T21 PO (15:56)
[2020-03-15] MEDS ORDERED: CHOL20007 OR (15:56)
--- NOTE | 2020-03-16 17:47 | NUR ---
1736 03/16/20 - I was not made aware of pending SS consult for hospice evaluation.
== END 2020-03-14 20:33 | disposition hospice, home (50) | DRG 177 ==
LOC: ER 11:52 → TELE 11:53 → TELE-EAST 15:47
PROVIDERS: ADMIT Internal Medicine; ATTEND Hospitalist
PROC: XW033E5 Introduction of Remdesivir Anti-infective into Peripheral Vein, Percutaneous Approach, New Technology Group 5 (ICD-10-PCS; principal; 2020-03-11)
PROC: XW13325 Transfusion of Convalescent Plasma (Nonautologous) into Peripheral Vein, Percutaneous Approach, New Technology Group 5 (ICD-10-PCS; 2020-03-13)
DX: U07.1 COVID-19 (principal); J12.89 Other viral pneumonia; J96.01 Acute respiratory failure with hypoxia; I82.411 Acute embolism and thrombosis of right femoral vein; J47.0 Bronchiectasis with acute lower respiratory infection; I82.431 Acute embolism and thrombosis of right popliteal vein; E11.21 Type 2 diabetes mellitus with diabetic nephropathy; E78.5 Hyperlipidemia, unspecified; N18.30 Chronic kidney disease, stage 3 unspecified; E11.65 Type 2 diabetes mellitus with hyperglycemia; I48.91 Unspecified atrial fibrillation; E11.22 Type 2 diabetes mellitus with diabetic chronic kidney disease; I12.9 Hypertensive chronic kidney disease with stage 1 through stage 4 chronic kidney disease, or unspecified chronic kidney disease; Z66 Do not resuscitate
CPT/HCPCS: 36415; 36600; 71045; 71250; 80048; 80053; 81001; 82728; 82805; 82962; 83036; 83605; 83735; 84484; 85007; 85025; 85027; 85379; 86141; 86850; 86900; 86901; 87040; 87426; 93005; 93970; 94640; 96372; 96374; 99291; G0378; J1100; J1815; J1956

== ENCOUNTER 2020-03-20 09:59 | Inpatient (IN) | payer OTHER ==
[~2020-03-20] VITALS: Ht 170.2 cm; Wt 74.0 kg
[2020-03-20] VITALS (7 sets, daily range): BP systolic 138–145; BP diastolic 54–91
[~2020-03-20 09:59] MED LIST: APIX5TAB OR; ASCO500T11 GT; ATOR40TA52 PO; CHOL20007 OR; DEXA6TAB6 PO; GLIP5TAB12 PO; INSUINJ37 SC; LEVO500T21 PO; METO25TA5 PO; SITA50TA PO; ZINC220T6 PO
[2020-03-20] MEDS ORDERED: DexAMETHasone SOD PHOS 10MG/1ML VIAL INJ IV ONE (10:30)
[2020-03-20] MEDS ORDERED: MORPHINE SULF INJ 2 MG/ML SYRINGE 1ML IV PRN (10:45)
[2020-03-20] MEDS ORDERED: NITROGLYCERIN 0.4 MG SL TAB SL PRN (10:45)
[2020-03-20] MEDS ORDERED: FUROSEMIDE 20 MG/2 ML VIAL IV ONE ×2 (11:00→14:15)
[2020-03-20] MEDS ORDERED: ALBUAER3 IN (11:07)
[2020-03-20] MEDS ORDERED: FERR-20 PO (11:07)
[2020-03-20] MEDS ORDERED: PRED20TA2 PO (11:10)
[2020-03-20] MEDS ORDERED: LORA0.5T20 PO (11:10)
[2020-03-20] MEDS ORDERED: ACET-1156 PO (11:16)
[2020-03-20] MEDS ORDERED: POM IN (11:19)
[2020-03-20] MEDS ORDERED: DEXA6TAB PO (11:29)
[2020-03-20] MEDS ORDERED: ZINC220C8 PO (11:32)
[2020-03-20] MEDS ORDERED: ASCO500C49 PO (11:33)
[2020-03-20] MEDS ORDERED: CHOL20002 PO (11:33)
[2020-03-20] MEDS ORDERED: METO-158 PO (11:34)
[2020-03-20 11:38] LABS: Albumin 1.5 g/dL (3.4-5.0); Anion Gap 12 (5-15); Calcium 9.6 mg/dL (8.5-10.1); Carbon Dioxide 19 mmol/L (21-32); Chloride 105 mmol/L (98-107); Glucose 379 mg/dL (74-106); Potassium 5.5 mmol/L (3.5-5.1); Sodium 136 mmol/L (136-145)
[2020-03-20 11:42] LABS: Lactic Acid w/Reflex 5.2 mmol/L (0.4-2.0)
[2020-03-20 11:46] LABS: Alanine Aminotransferase 16 U/L (16-61); Alkaline Phosphatase 135 U/L (45-117); Aspartate Aminotransferase 13 U/L (15-37); BUN/Creatinine Ratio 32.3; Bilirubin, Total 0.7 mg/dL (0.2-1.0); GFR African American 31 mL/min; GFR Non-African American 26 mL/min; Total Protein 7.3 g/dL (6.4-8.2)
[2020-03-20 11:49] LABS: CRP High Sensitivity > 19 mg/dL (< 0.3)
[2020-03-20 11:51] LABS: Blood Urea Nitrogen 84 mg/dL (7-18)
[2020-03-20 11:54] LABS: Hemoglobin 19.1 g/dL (13.5-17.5)
[2020-03-20 11:57] LABS: Mean Corpuscular Hemoglobin 29.1 pg (28.0-32.0); Mean Corpuscular Volume 88.1 fL (80.0-100.0); Platelet Count (auto) 203 10^3/uL (140-450); Red Blood Cells 6.57 10^6/uL (4.5-5.90); Red Cell Distribution Width 14.4 % (11.8-14.3); White Blood Cell 19.7 10^3/uL (4.4-10.8)
[2020-03-20] MEDS ORDERED: SODIUM BICARBONATE 8.4% INJ 50ML SYRINGE IV ONE ×2 (12:00→18:45)
[2020-03-20] MEDS ORDERED: SODIUM ZIRCONIUM CYCL 10 GM PAK PO ONE (12:00)
[2020-03-20] MEDS ORDERED: DEXTROSE (50%) 50ML SYRG IV ONE ×2 (12:00→18:45)
[2020-03-20] MEDS ORDERED: InsuLIN REG 1unit/0.01ml Soln (100units/ml) IV ONE ×2 (12:00→18:45)
[2020-03-20] MEDS ORDERED: CALCIUM CHL 100MG/ML 500 MG in D5W 5% 100 ML IV ONE (12:00)
[2020-03-20] MEDS ORDERED: ALBUTEROL SULF 2.5 MG/0.5ML(0.5%) NEB SOLN NEB ONE ×2 (12:00→18:45)
[2020-03-20] MEDS ORDERED: LACTATED RINGER'S 1,000 ML IV ONE (12:00)
[2020-03-20] MEDS ORDERED: FUROSEMIDE 40 MG/4 ML VIAL IV ONE (12:00)
[2020-03-20 12:09] LABS: Hematocrit 57.8 % (41.0-53.0)
[2020-03-20 12:10] LABS: Basophils % (manual) 0 (0.0-2.0); Blast Cells 0; Eosinophils % (manual) 0 (0-7); Metamyelocytes % 0; Myelocytes % 0; Promyelocytes % 0; Reactive Lymphocytes 0
--- NOTE | 2020-03-20 12:30 | NUR ---
Admit to [facility] DARIN[facility]AD Wilkins admitted to [facility] ROOM 265 via rney on cardiac cath lab radiology technologist, and portable 02. Patient transfered to bed, connected to unit monitoring and oxygen, and weighed by bedscale. Patient oriented to Daria mcclellan RN, unit, room, bed, and unit policies regarding patient care and visiting hours. All questions and concerns addressed, patient verbalized understanding. PATIENT A & O X4 CALM AND FOLLOWS COMMANDS. NO PAIN AT THIS TIME. PATIENT PLACED ON HIGH FLOW OXYGEN BY R.T. AT BEDSIDE. PLACED ON 55L O2 AT 80% FIO2. PATIENT USING URINAL TO VOID. SKIN INTACT TO SACRAL AREA. CURRENT V/S HR ST 111, RR 28, SATS 89%, BP 142/90. TEMP 96.6 ORALLY[address] WARMING MEASURES IN PLACE AT THIS TIME. WILL CONTINUE TO MONITOR.
[2020-03-20 13:20] LABS: Band Neutrophils % (manual) 1; Lymphocytes % (manual) 2 (10.0-50.0); Monocytes % (manual) 2 (0-12)
[2020-03-20] MEDS ORDERED: hydrALAZINE HCL 20 MG/ML VL IV PRN (13:30)
[2020-03-20] MEDS ORDERED: PIPERACILLIN-TAZOB 3.375GM 100 ML IV ONE (13:30)
[2020-03-20] MEDS ORDERED: methylPREDNISolone SOD SUCC 125 MG/2 ML VL IV ONE (13:30)
[2020-03-20] MEDS ORDERED: METOPROLOL TARTRATE 25 MG TAB PO ONE ×2 (13:30→14:15)
[2020-03-20] MEDS ORDERED: VANCOMYCIN PER PHARMACY 0 MG IV SCH (13:30)
[2020-03-20] MEDS ORDERED: SODIUM CHLORIDE 0.9% 1,000 ML IV SCH (13:30)
[2020-03-20] MEDS ORDERED: DEXTROSE (50%) 50ML SYRG IV PRN (13:30)
[2020-03-20] MEDS ORDERED: methylPREDNISolone SOD SUCC 40 MG/ML VL IV SCH (14:00)
[2020-03-20] MEDS ORDERED: CHOLECALCIFEROL (VITD3) 2,000 UNIT CAP PO ONE (14:15)
[2020-03-20] MEDS ORDERED: APIXABAN 5 MG TAB PO ONE (14:15)
[2020-03-20] MEDS ORDERED: ASCORBIC ACID 1,000 MG TAB PO ONE (14:15)
[2020-03-20] MEDS ORDERED: ZINC SULFATE 220mg CAP or TAB PO ONE (14:15)
[2020-03-20] MEDS: ALBUTEROL SULF HFA 90MCG INH 200DOSE IN SCH ×2 (16:10→22:00)
[2020-03-20] MEDS: SODIUM ZIRCONIUM CYCL 10 GM PAK PO SCH ×2 (16:19→21:52)
[2020-03-20] MEDS ORDERED: VANCOMYCIN 1GM/250ML 250 ML IV ONE (16:45)
[2020-03-20] MEDS: ACCU-CHEK COMFORT CURVE STRIP VI SCH ×2 (17:15→22:28)
[2020-03-20] MEDS: SODIUM BICARBONATE 50ML VIAL 100 ML in SOD CHL 0.45% 1,000 ML IV SCH (17:48)
[2020-03-20] MEDS: InsuLIN REG 1unit/0.01ml Soln (100units/ml) SC SCH (17:49)
[2020-03-20] MEDS ORDERED: PIPERACILLIN-TAZOB 3.375GM 100 ML IV SCH (18:00)
[2020-03-20 18:03] LABS: Hematocrit 51.9 % (41.0-53.0); Hemoglobin 17.2 g/dL (13.5-17.5); Mean Corpuscular Hemoglobin 28.8 pg (28.0-32.0); Mean Corpuscular Volume 87.1 fL (80.0-100.0); Platelet Count (auto) 185 10^3/uL (140-450); Red Blood Cells 5.96 10^6/uL (4.5-5.90); Red Cell Distribution Width 14.3 % (11.8-14.3); White Blood Cell 16.3 10^3/uL (4.4-10.8)
[2020-03-20] MEDS: FERROUS SULFATE 325 MG TAB PO SCH (18:04)
[2020-03-20] MEDS: FUROSEMIDE 20 MG/2 ML VIAL IV SCH (18:04)
[2020-03-20 18:07] LABS: Band Neutrophils % (manual) 0; Basophils % (manual) 0 (0.0-2.0); Blast Cells 0; Eosinophils % (manual) 0 (0-7); Metamyelocytes % 0; Myelocytes % 0; Promyelocytes % 0; Reactive Lymphocytes 0
[2020-03-20 18:15] LABS: Albumin 1.3 g/dL (3.4-5.0); BUN/Creatinine Ratio 40.4; Bilirubin, Total 0.5 mg/dL (0.2-1.0); Calcium 8.9 mg/dL (8.5-10.1); Magnesium 2.7 mg/dL (1.6-2.6); Total Protein 6.2 g/dL (6.4-8.2)
[2020-03-20 18:35] LABS: CRP High Sensitivity 13.8 mg/dL (< 0.3)
[2020-03-20 18:36] LABS: Potassium 5.8 mmol/L (3.5-5.1)
[2020-03-20] MEDS ORDERED: CALCIUM GLUC 4.65meq/50ml D5AE 50 ML IV ONE (18:45)
--- NOTE | 2020-03-20 18:52 | NUR ---
CALLED DR. ARRIAGA: ORDERS CURRENT k+ LEVEL 5.8. HYPERKALEMIA PROTOCOL INITIATED PER MD ORDERS GIVEN. MD WANTING ANOTHER k+ LEVEL 4 HOURS AFTER COCKTAIL IS COMPLETED. MANAGER URGENT CARE RN TO COME ON SOON. WILL RELAY INFORMATION. CONTINUE CARE.
[2020-03-20 19:19] LABS: Lymphocytes % (manual) 2 (10.0-50.0); Monocytes % (manual) 1 (0-12)
--- NOTE | 2020-03-20 20:00 | NUR ---
Opening Shift Note received report from day shift RN Daria. Pt came in on 03/20/20 with a chief complaint of SOB. Pt has had SOB for 3 weeks. Pt was COVID positive 3 weeks ago. Pt was placed in airborne isolation, diagnosed with ARDS, and admitted to [facility] for further care. Pt came to [facility] on high flow o2 55L on 80% FIO2. History obtained from chart, previous RN, and patient. Pt is currently on high flow o2 55L on 80% FIO2 spo2 94%. Pt is AAOx4, oriented to staff and POC. VSS. Bed is locked at lowest position, side rails up, call light is within reach. Pt educated car electronics installer light and instructed to call if he needs anything. Pt verbalized understanding. Will continue to monitor.
[2020-03-20] MEDS: APIXABAN 5 MG TAB PO SCH (21:51)
[2020-03-20] MEDS: ATORVASTATIN 20 MG TAB PO SCH (21:51)
[2020-03-20] MEDS ORDERED: ATORVASTATIN 20 MG TAB PO SCH (22:00)
[2020-03-20] MEDS: BUDESONIDE (INHALATION) 180 MCG IH IN SCH (22:00)
[2020-03-20] MEDS ORDERED: METOPROLOL TARTRATE 25 MG TAB PO SCH (22:00)
[2020-03-21] VITALS (13 sets, daily range): BP systolic 101–162; BP diastolic 65–87
[2020-03-21] MEDS: InsuLIN REG 1unit/0.01ml Soln (100units/ml) SC SCH ×5 (00:28→22:42)
--- NOTE | 2020-03-21 04:17 | NUR ---
Linen change/Bed bath refused Pt states he is cold and does not want to be uncovered. Temperature 97.5 at this time. Warm blankets provided for the patient. Will continue to monitor.
--- NOTE | 2020-03-21 05:00 | NUR ---
Called lab due to blood draw peripheral stick being late. Kelsey from lab stated they are doing their morning rounds right now and they will be here when they can.
--- NOTE | 2020-03-21 05:45 | NUR ---
Desaturation episode during pericare Upon pt turning to his right side for pericare, pt had a desaturation episode down to spo2 81% on 60L high flow and 80% FIO2. Pt repositioned supine with HOB >30 degrees. Pt's spo2 slowly went up to 94%. Will continue to monitor.
--- NOTE | 2020-03-21 06:15 | NUR ---
Called lab x2 regarding late peripheral stick. No answer, will try again .
[2020-03-21] MEDS: SODIUM BICARBONATE 50ML VIAL 100 ML in SOD CHL 0.45% 1,000 ML IV SCH (06:30)
[2020-03-21] MEDS: ACCU-CHEK COMFORT CURVE STRIP VI SCH ×4 (06:31→22:41)
[2020-03-21] MEDS: SODIUM ZIRCONIUM CYCL 10 GM PAK PO SCH ×3 (06:31→22:00)
[2020-03-21] MEDS: FUROSEMIDE 20 MG/2 ML VIAL IV SCH ×2 (06:31→17:18)
[2020-03-21] MEDS: ALBUTEROL SULF HFA 90MCG INH 200DOSE IN SCH ×3 (06:34→23:32)
[2020-03-21] MEDS: BUDESONIDE (INHALATION) 180 MCG IH IN SCH ×2 (06:34→23:32)
--- NOTE | 2020-03-21 07:06 | NUR ---
Called lab due to blood draw peripheral stick being late. AJ from lab stated they will be right over
--- NOTE | 2020-03-21 07:45 | NUR ---
OPENING SHIFT NOTE Received report from NOC RNMarlyn. Assumed care of patient. Patient is currently on Novel Respiratory Isolation for rule out COVID-19. Patient was recently admitted and discharged from [facility] on 03/15/20 with a positive COVID test. Received patient connected to bedside monitor and alarms in place. Patient is A&Ox4, denies pain and has no s/s of distress noted. Patient currently on high flow oxygen 60L 80% with sats in the mid 90s. Patient with two PIVs: RAC #20 and L wrist #20, both patent and flushing. Patient voiding in urinal independently. Bed in lowest position, rails x2 up and call light within reach. Updated on plan of care. Will continue to monitor.
--- NOTE | 2020-03-21 08:30 | NUR ---
LAB Data Reviewer at bedside drawing morning labs.
[2020-03-21 09:10] LABS: Basophils # (auto) 0 10 ^3/uL (0-0.2); Basophils % (auto) 0.1 % (0.0-2.0); Eosinophils # (auto) 0 10 ^3/uL (0-0.8); Hemoglobin 17.1 g/dL (13.5-17.5); Lymphocytes # (auto) 0.3 10 ^3/uL (0.4-5.4); Monocytes # (auto) 0.3 10 ^3/uL (0-1.3); Neutrophils # (auto) 14.6 10 ^3/uL (1.6-8.6); Neutrophils % (auto) 95.6 % (37.0-80.0)
[2020-03-21 09:12] LABS: Hematocrit 51.4 % (41.0-53.0); Lymphocytes % (auto) 2.1 % (10.0-50.0); Mean Corpuscular Hemoglobin 28.6 pg (28.0-32.0); Mean Corpuscular Hgb Conc. 33.2 g/dL (32.0-36.0); Mean Corpuscular Volume 85.9 fL (80.0-100.0); Monocytes % (auto) 2.2 % (0.0-12.0); Nucleated Red Blood Cells % 0.3 %; Platelet Count (auto) 170 10^3/uL (140-450); Red Blood Cells 5.98 10^6/uL (4.5-5.90); Red Cell Distribution Width 14.1 % (11.8-14.3); White Blood Cell 15.3 10^3/uL (4.4-10.8)
[2020-03-21 09:29] LABS: Albumin 1.3 g/dL (3.4-5.0); Calcium 9.3 mg/dL (8.5-10.1)
[2020-03-21 09:33] LABS: Bilirubin, Total 0.7 mg/dL (0.2-1.0); Total Protein 5.8 g/dL (6.4-8.2)
[2020-03-21 09:36] LABS: BUN/Creatinine Ratio 42.8
[2020-03-21] MEDS: cefTRIAXone 1GM/50ML D5W 50 ML IV SCH (09:53)
[2020-03-21] MEDS: FERROUS SULFATE 325 MG TAB PO SCH ×3 (09:53→17:18)
[2020-03-21] MEDS: CHOLECALCIFEROL (VITD3) 2,000 UNIT CAP PO SCH (09:54)
[2020-03-21] MEDS: ZINC SULFATE 220mg CAP or TAB PO SCH (09:54)
[2020-03-21] MEDS: ASCORBIC ACID 1,000 MG TAB PO SCH (09:54)
[2020-03-21] MEDS: ENOXAPARIN SOD 80 MG/0.8ML SYRINGE SC SCH (09:54)
[2020-03-21] MEDS: APIXABAN 5 MG TAB PO SCH ×2 (09:54→22:39)
[2020-03-21] MEDS ORDERED: DexAMETHasone SOD PHOS 10MG/1ML VIAL INJ IV SCH (10:00)
[2020-03-21] MEDS ORDERED: VANCOMYCIN 750mg/250ml 250 ML IV ONE (11:00)
[2020-03-21] MEDS ORDERED: AMIODARONE 450mg/250ml AE 250 ML IV ONE (11:55)
[2020-03-21] MEDS ORDERED: AMIODARONE HCL (50 MG/ ML) 3 ML VIAL IV ONE (11:55)
[2020-03-21] MEDS ORDERED: AMIODARONE HCL 150 MG in D5W 5% 100 ML IV ONE (12:00)
[2020-03-21] MEDS ORDERED: ADENOSINE 6 MG/2 ML INJ IV ONE (12:00)
[2020-03-21] MEDS ORDERED: METOPROLOL TARTRATE 1MG/1ML-5ML VIAL IV PRN (12:15)
[2020-03-21] MEDS ORDERED: AMIODARONE 450mg/250ml AE 250 ML IV SCH (12:15)
--- NOTE | 2020-03-21 12:30 | NUR ---
RHYTHM CHANGE 1130 - Patient noted to be in Afib w/RVR with HR in the 170s. Patient asymptomatic. BP 123/60. Dr Christopher paged and message left for orders. 12 lead EKG performed confirming Afib w/ RVR. 1140 - Dr Christopher on unit. Orders received to give Adenosine. 1150 - Adenosine 6mg IVP given through #20 to Rt AC. Patient's HR dropped to 100-120. Underlying rhythm noted to be Aflutter per Dr Christopher. Orders received to consult Dr Toro, cardiology and to start Amiodarone per protocol. 1200 - Dr Nir Mattson at bedside. Will be taking over care from Dr Christopher. Orders received for Metoprolol IV and PO, and to repeat COVID test. 1205 - PIV to R AC pulled out by accident. #22 started to Rt Hand. NS infusing at TKO for IV abx. Amiodarone bolus/drip started to left Wrist #20 PIV. 1230 - Metoprolol PO and IV given per orders. Patient's HR 156 BP 129/78. Amiodarone drip infusing at 1mg/min.
--- NOTE | 2020-03-21 12:35 | NUR ---
MD Dr Toro to see patient and recent rhythm strips. No new orders received.
[2020-03-21] MEDS: methylPREDNISolone SOD SUCC 40 MG/ML VL IV SCH ×2 (13:00→22:38)
[2020-03-21] MEDS: METOPROLOL TARTRATE 50 MG TAB PO SCH ×2 (13:01→22:40)
--- NOTE | 2020-03-21 14:45 | NUR ---
FAMILY T/C from patient's , Arlette. Password verified. Updated on patient status and plan of care. All questions addressed at this time.
[2020-03-21] MEDS: AMIODARONE 450mg/250ml AE 250 ML IV SCH (18:24)
--- NOTE | 2020-03-21 18:31 | NUR ---
WOUND PHOTO Skin tear noted to sacrum while changing linens. Small open area ~1x1cm open in gluteal cleft. Wound cleansed with NS, Zguard applied and foam dressing covered area. Photos taken and wound consult placed.
--- NOTE | 2020-03-21 19:00 | NUR ---
Opening Shift Note Received Report and Assumed care of patient, awake and alert, on HF NC 45L 65% FIO2, patient is resting quietly in bed at this time no s/s of distress.
--- NOTE | 2020-03-21 19:25 | NUR ---
END OF SHIFT NOTE Report given to NOC RNLeanne. Endorsed care of patient. Patient remains on high flow 45L 60% with O2 sats 100%. Patient still in afib 120s and on Amiodarone gtt at 0.5mg/min.
--- NOTE | 2020-03-21 22:11 | NUR ---
Patient resting quietly in bed patient currently on HF NC 45L 65% FIO2 patient shows no s/s of distress at this time.
[2020-03-21] MEDS: ATORVASTATIN 20 MG TAB PO SCH (22:39)
[2020-03-22] VITALS (12 sets, daily range): BP systolic 94–135; BP diastolic 63–89
--- NOTE | 2020-03-22 00:30 | NUR ---
RT Paged Patient c/o of not having enough air patient o2 sat currently 97% on HF NC 45L 65% FIO2.
--- NOTE | 2020-03-22 00:45 | NUR ---
RT At BEDSIDE
--- NOTE | 2020-03-22 00:55 | NUR ---
HF Changed New settings for HF NC 50L 70% FIO2 Patient O2 Sat now 99%
--- NOTE | 2020-03-22 03:00 | NUR ---
Patient Rounding Patient resting quietly in bed without s/s of distress patient currently on HF NC 50L 70% FIO2 oxygen sat 100%
--- NOTE | 2020-03-22 05:00 | NUR ---
Morning CARE Patient received a partial linen change, clean Gown and partial CHG wipe bath, bowel movement cleaned and rectal thermometer placed, patient tolerated process with minimal distress.
[2020-03-22] MEDS: SODIUM ZIRCONIUM CYCL 10 GM PAK PO SCH (06:00)
[2020-03-22] MEDS: FUROSEMIDE 20 MG/2 ML VIAL IV SCH (06:28)
[2020-03-22] MEDS: ACCU-CHEK COMFORT CURVE STRIP VI SCH ×4 (06:29→22:00)
[2020-03-22] MEDS: InsuLIN REG 1unit/0.01ml Soln (100units/ml) SC SCH ×4 (06:32→22:00)
--- NOTE | 2020-03-22 06:53 | NUR ---
Shift END report Will provide shift report and endorse care, patient remains in AFIB controlled rate 80's - low 100's patient is on 0.5 Amiodarone and HF NC 50L 70% FIO2
[2020-03-22] MEDS: ALBUTEROL SULF HFA 90MCG INH 200DOSE IN SCH ×3 (07:22→22:39)
[2020-03-22] MEDS: BUDESONIDE (INHALATION) 180 MCG IH IN SCH ×2 (07:22→22:39)
--- NOTE | 2020-03-22 08:30 | NUR ---
Opening shift note Pt eating breakfast. On high flow 50L at 70% fio2. VSS. denies any pain at this time. Will continue to monitor closely
[2020-03-22] MEDS: cefTRIAXone 1GM/50ML D5W 50 ML IV SCH (09:05)
[2020-03-22] MEDS: CHOLECALCIFEROL (VITD3) 2,000 UNIT CAP PO SCH (09:05)
[2020-03-22] MEDS: ZINC SULFATE 220mg CAP or TAB PO SCH (09:05)
[2020-03-22] MEDS: METOPROLOL TARTRATE 50 MG TAB PO SCH ×2 (09:06→22:00)
[2020-03-22] MEDS: ASCORBIC ACID 1,000 MG TAB PO SCH (09:06)
[2020-03-22] MEDS: APIXABAN 5 MG TAB PO SCH ×2 (09:06→22:00)
[2020-03-22] MEDS: FERROUS SULFATE 325 MG TAB PO SCH ×3 (09:06→18:16)
[2020-03-22] MEDS: ENOXAPARIN SOD 80 MG/0.8ML SYRINGE SC SCH (09:06)
[2020-03-22] MEDS: methylPREDNISolone SOD SUCC 40 MG/ML VL IV SCH ×2 (09:07→22:00)
--- NOTE | 2020-03-22 10:00 | NUR ---
WOUND CARE NOTE: PATIENT ADMITTED TO [facility] WITH DIAGNOSIS OF ACUTE RESPIRATORY DISTRESS. HE IS CURRENTLY ON AIRBORNE ISOLATION FOR POSSIBLE COVID 19. PATIENT HAS CURRENT ISAEL SCORE OF 16. PATIENT CAN SELF TURN/REPOSITION SELF, BUT BECOMES SOB UPON EXERTION. PATIENT IS RESTING ON ICU LOW AIRLOSS BED. PATIENT NOTED TO HAVE A NEW WOUND CONCERN UPON WOUND ASSESSMENT. WOUND PHOTO TAKEN PER PROTOCOL, BY BEDSIDE NURSE. PATIENT HAS A 0.5 X 2 CM SKIN TEAR/ABRASION THAT IS PARTIAL THICKNESS TO INTRAGLUTEAL FOLD/SACRUM. OPEN AND PERIWOUND AREAS ARE RED, BLANCHABLE. SKIN/WOUND CARE PLAN IMPLEMENTED. RECOMMEND: BID/PRN APPLICATION WITH ZGUARD, OPTIFOAM GENTLE SACRAL DRESSING, SKIN/WOUND CARE PLAN, CONTINUED USE OF LOW AIRLOSS MATRESS; FREQUENT PATIENT EDUCATION ON NEED FOR TURNING/REPOSITIONING, CONTINUED MONITORING BY WOUND CARE TEAM. Addendum: 03/22/20 at 1505 by Teresa Diaz RN Amended: Links added.
[2020-03-22] MEDS ORDERED: FUROSEMIDE 40 MG/4 ML VIAL IV ONE (11:00)
--- NOTE | 2020-03-22 11:00 | NUR ---
Pulmonology rounding on patient. New orders received.
[2020-03-22] MEDS: AMIODARONE 450mg/250ml AE 250 ML IV SCH ×2 (12:00→23:28)
[2020-03-22] MEDS ORDERED: VANCOMYCIN 750mg/250ml 250 ML IV ONE (12:00)
--- NOTE | 2020-03-22 12:27 | NUR ---
Dr. Martinez in to see pt. No new orders at this time
--- NOTE | 2020-03-22 12:28 | NUR ---
Cardiology rounding on pt. updated on pt status. Keep om amio gtt for another 24hrs.
--- NOTE | 2020-03-22 18:00 | NUR ---
Pt repositioned and turned to right side to offload pressure on sacrum. Pt denies pain at this time
[2020-03-22] MEDS: ATORVASTATIN 20 MG TAB PO SCH (22:00)
--- NOTE | 2020-03-22 23:00 | NUR ---
AT BEDSIDE IN FULL PPE DUE TO ISOLATION PRECAUTIONS. AT BEDSIDE FOR MDI AND DPI TX. FIO2 DECREASED TO 50% VIA HFNC. PASCALE CARDONA COMMUNICATED ON O2 CHANGE.
[2020-03-23] VITALS (18 sets, daily range): BP systolic 94–151; BP diastolic 22–96
[2020-03-23] MEDS: ALBUTEROL SULF HFA 90MCG INH 200DOSE IN SCH ×3 (06:00→22:04)
[2020-03-23] MEDS: ACCU-CHEK COMFORT CURVE STRIP VI SCH ×4 (06:51→21:45)
[2020-03-23] MEDS: InsuLIN REG 1unit/0.01ml Soln (100units/ml) SC SCH ×4 (06:51→22:40)
--- NOTE | 2020-03-23 07:00 | NUR ---
OPENING NOTE ASSUMED CARE OF PATIENT AT THIS TIME. REPORT RECEIVED FROM CHRISTOPHER RN. POC REVIEWED. HEAD TO TOE ASSESSMENT COMPLETE, SEE INTERVENTION SPREADSHEET FOR COMPLETE DETAILS. RECEIVED PT ALERT AND ORIENTED ON COVID PRECAUTION. RECEIVED PT ON HIGH FLOW. RECEIVED PT WITH SKIN TEAR TO GLUTEAL FOLD. PT DENIES PAIN. PT USES URINAL AT BEDSIDE. CALL LIGHT WITHIN REACH. BED LOCKED AND IN LOWEST POSITION, SAFETY PRECAUTIONS IN PLACE. IV SITES BENIGN. WILL MONITOR PT CAREFULLY.
[2020-03-23] MEDS: cefTRIAXone 1GM/50ML D5W 50 ML IV SCH (09:30)
[2020-03-23] MEDS: FERROUS SULFATE 325 MG TAB PO SCH ×3 (09:30→18:10)
--- NOTE | 2020-03-23 09:30 | NUR ---
Midline Placement: Patient educated on need for midline placement. All risks and benefits explained and all questions and concerns addresses prior to procedure. 18g/10 cm midline inserted via right brachia vein using Ultrasound. Sterile technique utilized. Blood return obtained from the single lumen and flushed easily with NS using proper technique. Midline secured with saline lock; biodisc and occlusive dressing applied. Primary RN Jo notified. Midline lot # [id number]
[2020-03-23] MEDS: BUDESONIDE (INHALATION) 180 MCG IH IN SCH ×2 (10:00→22:05)
[2020-03-23] MEDS ORDERED: FUROSEMIDE 40 MG/4 ML VIAL IV SCH (10:00)
[2020-03-23] MEDS: ASCORBIC ACID 1,000 MG TAB PO SCH (10:11)
[2020-03-23] MEDS: methylPREDNISolone SOD SUCC 40 MG/ML VL IV SCH ×2 (10:11→21:15)
[2020-03-23] MEDS: APIXABAN 5 MG TAB PO SCH ×2 (10:11→21:44)
[2020-03-23] MEDS: METOPROLOL TARTRATE 50 MG TAB PO SCH ×2 (10:12→21:46)
[2020-03-23] MEDS: CHOLECALCIFEROL (VITD3) 2,000 UNIT CAP PO SCH (10:12)
[2020-03-23] MEDS: ZINC SULFATE 220mg CAP or TAB PO SCH (10:12)
--- NOTE | 2020-03-23 10:55 | NUR ---
Family update Daughter of Pt, crystal called. PW provided, all questions addressed at this time.
--- NOTE | 2020-03-23 14:57 | NUR ---
Nutrition Assessment Note please see attached link for complete assessment Est energy needs BW [id number] kcal (25-30 kcal/kg BW), Est protein needs 68-74g (1-1.1g/kg BW r/t elev RFT severe hypoalb). will monitor and reassess prn. Addendum: 03/23/20 at [address] Amended: Links added.
[2020-03-23] MEDS: AMIODARONE 450mg/250ml AE 250 ML IV SCH (15:02)
--- NOTE | 2020-03-23 16:55 | NUR ---
LINENS CHANGED NEW OPTIFOAM PLACED ON SACRAL AREA. PT ABLE TO ASSIST WITH TURN AND VSS WHEN TURNING. SAFETY PRECAUTIONS MAINTAINED. BED LOCKED AND IN LOWEST POSITION. CALL LIGHT WITHIN REACH.
--- NOTE | 2020-03-23 17:46 | NUR ---
SHIFT REPORT NO MAJOR EVENT TO REPORT. PT HAD 2 BOWEL MOVEMENTS THROUGHOUT THE DAY. PT DID NOT EAT VERY MUCH BUT TOLERATED DIET WELL. VS REMAINED STABLE. ALL IV LINES REPLACED AND DATED.
--- NOTE | 2020-03-23 19:00 | NUR ---
REPORT RECEIVED REPORT FROM NURSE BAUTISTA TO RESUME CARE OF PATIENT.
--- NOTE | 2020-03-23 20:30 | NUR ---
AFIB PATIENT CONTINUES TO BE AFIB ON MONITOR 80-100 AND ON AMIODARONE GTT 0.5MG/MIN - 16.67 ML/HR AND TOLERATING WELL. WILL CONTINUE TO MONITOR PATIENT.
[2020-03-23] MEDS: ATORVASTATIN 20 MG TAB PO SCH (21:44)
--- NOTE | 2020-03-23 22:00 | NUR ---
EMANUEL-Celia ADMINISTERED 4 UNITS OF REGULAR INSULIN
--- NOTE | 2020-03-23 23:00 | NUR ---
IV ACCESS PATIENT 20G TO LEFT HAND INFILTRATED AND IS LEAKING. ATTEMPTED TO INSERT IV ACCESS WITH NO SUCCESS. PATIENT BUE EDEMATOUS AND POSSIBLY NEED ANOTHER MIDLINE OF PICC LINE.
[2020-03-24] VITALS (43 sets, daily range): BP systolic 93–158; BP diastolic 41–96
[2020-03-24] MEDS: AMIODARONE 450mg/250ml AE 250 ML IV SCH (02:40)
[2020-03-24 03:52] LABS: Eosinophils # (auto) 0 10 ^3/uL (0-0.8); Hematocrit 54.7 % (41.0-53.0); Lymphocytes # (auto) 0.4 10 ^3/uL (0.4-5.4)
[2020-03-24 03:54] LABS: Basophils # (auto) 0.1 10 ^3/uL (0-0.2); Basophils % (auto) 0.5 % (0.0-2.0); Hemoglobin 18.2 g/dL (13.5-17.5); Lymphocytes % (auto) 1.9 % (10.0-50.0); Mean Corpuscular Hemoglobin 28.2 pg (28.0-32.0); Mean Corpuscular Hgb Conc. 33.2 g/dL (32.0-36.0); Mean Corpuscular Volume 85.1 fL (80.0-100.0); Monocytes # (auto) 0.5 10 ^3/uL (0-1.3); Monocytes % (auto) 2.4 % (0.0-12.0); Neutrophils # (auto) 19.1 10 ^3/uL (1.6-8.6); Neutrophils % (auto) 95.2 % (37.0-80.0); Nucleated Red Blood Cells % 0.1 %; Platelet Count (auto) 177 10^3/uL (140-450); Red Blood Cells 6.43 10^6/uL (4.5-5.90); Red Cell Distribution Width 13.8 % (11.8-14.3); White Blood Cell 20.1 10^3/uL (4.4-10.8)
[2020-03-24 04:10] LABS: Potassium 4.5 mmol/L (3.5-5.1)
[2020-03-24 04:23] LABS: Albumin 1.5 g/dL (3.4-5.0); BUN/Creatinine Ratio 46.4; Bilirubin, Total 0.6 mg/dL (0.2-1.0); CRP High Sensitivity 1.29 mg/dL (< 0.3); Calcium 8.5 mg/dL (8.5-10.1); Magnesium 2.8 mg/dL (1.6-2.6); Total Protein 5.5 g/dL (6.4-8.2)
[2020-03-24] MEDS: ACCU-CHEK COMFORT CURVE STRIP VI SCH ×4 (06:19→21:35)
--- NOTE | 2020-03-24 06:30 | NUR ---
BS-284 ADMINISTERED 9 UNITS OF REGULAR INSULIN
[2020-03-24] MEDS: InsuLIN REG 1unit/0.01ml Soln (100units/ml) SC SCH ×4 (06:33→22:32)
--- NOTE | 2020-03-24 06:42 | NUR ---
NEPHRO CONSULT PATIENT HAS ORDERS FOR NEPHRO CONSULT WITH DR WOLF US WAS UNABLE TO GET THRU OR LEAVE A MESSAGE. DR WOLF OFFICE DAY SHIFT TO TRY TO CALL DURING OFFICE HOURS.
[2020-03-24] MEDS: BUDESONIDE (INHALATION) 180 MCG IH IN SCH ×2 (06:58→22:08)
[2020-03-24] MEDS: ALBUTEROL SULF HFA 90MCG INH 200DOSE IN SCH ×3 (06:58→22:08)
--- NOTE | 2020-03-24 06:58 | NUR ---
Respiratory note: RECEIVED PT FROM BLOOD BANK SUPERVISOR ON HFNC 60L, 70% FIO2. NASAL PRONGS IN PLACE, WITH NO REDNESS/BREAKDOWN NOTED. WATER LEVEL AT ADEQUATE LEVEL. BS CLEAR/DIMINISHED BILATERALLY. ALBUTEROL MDI 180 MCG, PULMICORT 360MCG DPI GIVEN WITH NO ADVERSE EFFECTS NOTED. TITRATED FIO2 65%. PT TOLERATED CHANGE WELL. RN AWARE. NO OTHER CHANGES MADE AT THIS TIME. WILL CONTINUE TO MONITOR PT. CHARTING COMPLETE FROM OUTSIDE OF PT ROOM PER COVID-19 PRECAUTIONS/PROTOCOL.
[2020-03-24] MEDS: methylPREDNISolone SOD SUCC 40 MG/ML VL IV SCH ×2 (09:20→21:30)
[2020-03-24] MEDS: cefTRIAXone 1GM/50ML D5W 50 ML IV SCH (09:20)
[2020-03-24] MEDS: APIXABAN 5 MG TAB PO SCH ×2 (09:21→21:31)
[2020-03-24] MEDS: CHOLECALCIFEROL (VITD3) 2,000 UNIT CAP PO SCH (09:21)
[2020-03-24] MEDS: ZINC SULFATE 220mg CAP or TAB PO SCH (09:21)
[2020-03-24] MEDS: FERROUS SULFATE 325 MG TAB PO SCH ×4 (09:21→18:28)
[2020-03-24] MEDS: METOPROLOL TARTRATE 50 MG TAB PO SCH ×2 (09:22→21:34)
[2020-03-24] MEDS: ASCORBIC ACID 1,000 MG TAB PO SCH (09:22)
--- NOTE | 2020-03-24 09:30 | NUR ---
Elimination Patient requesting bedpan. Bedpan placed using moderate assistance as patient is able to help. Patient requesting to use urinal for urine collection. Patient urinated 50ml of yellow urine via urinal and approx 50ml on peripad spilled over. Patient had a small, dark brown pastey bm. Makenna care provided. Skin tear to intragluteal noted as reported. zgaurd applied, Optifoam placed. Patient turned to side to off load pressure, heels also off loaded with pillows. Heels remain asymptomatic. Will continue to reposition at least every 2 hrs.
[2020-03-24] MEDS ORDERED: ALBUMIN 25% 100 ML IV ONE (10:00)
--- NOTE | 2020-03-24 12:30 | NUR ---
Italian Lecturer Dr. Schaefer updated on patients status. MD aware of pending morales insertion. See md orders.
--- NOTE | 2020-03-24 13:00 | NUR ---
IV insertion IV access obtained, via clean sterile technique by inserting 20 gauge catheter at left wrist after 1 attempt(s). IV secured properly. No trauma to site. Patient tolerated procedure well.
--- NOTE | 2020-03-24 13:29 | NUR ---
Morales refused Patient refusing morales catheter insertion. Patient informed of reasoning and importance at this time. Patient continues to refuse and stating I don't want to have any discomfort. Informed patient this loan underwriter can attempt one time and if too uncomfortable this loan underwriter can stop. Patient continued to refuse. Patient then informed this loan underwriter can obtain order for lidocaine to assist with discomfort. Patient continues to refuse. Informed patient of current kidney function and possibility of worsening and can lead to dialysis or even . Patient continues to refuse. MD to be paged to notify.
--- NOTE | 2020-03-24 13:45 | NUR ---
Elimination Patient had a moderate, brown bm. Skin care provided. Patient turned to off load pressure. Heels remain off bed.
--- NOTE | 2020-03-24 14:52 | NUR ---
Respiratory note: ROUTINE HFNC CHECK COMPLETE. NASAL PRONGS IN PLACE WITH NO SKIN BREAK DOWN NOTED. WATER CHANGED, AND AT ADEQUATE LEVEL. ALBUTEROL MDI GIVEN WITH NO ADVERSE EFFECTS NOTED. BS CLEAR/DIMINISHED BILATERALLY. TITRATED FIO2 TO 50%. SPO2 95%, HR 52, RR 19. PT TOLERATED CHANGE WELL. RN AWARE. WILL ENDORSE PT STATUS TO DIGITAL ACCOUNT SUPERVISOR. CHARTING COMPLETE FROM OUTSIDE OF PT ROOM PER COVID-19 PRECAUTIONS/PROTOCOL.
--- NOTE | 2020-03-24 15:16 | NUR ---
Velazquez refused Patient re-educated on importance and recommendation per speciality. Patient continues to refuse. Md paged to notify. Awaiting callback.
--- NOTE | 2020-03-24 15:28 | NUR ---
UPDATED DR. DIXON UPDATED ON PATIENT STATUS. MD AWARE OF ASYMPTOMATIC BRADYCARDIA. POOR APPETITE. REFUSAL OF [place] CATHETER INSERTION. MD VERBALIZED UNDERSTANDING. SEE MD ORDERS/NOTES.
--- NOTE | 2020-03-24 16:54 | NUR ---
Master Welder at bedside Dr. Sanchez at bedside. See md notes.
--- NOTE | 2020-03-24 18:00 | NUR ---
Family updated on pt status Family of PARULDENISEDORAFrankyABAD updated on patient's status and condition. All questions and concerns addressed. verbalized understanding.
[2020-03-24] MEDS: Glucerna Carbsteady SHAKE Vanilla 8oz PO SCH (18:27)
--- NOTE | 2020-03-24 18:28 | NUR ---
Morales catheter insertion Patient RE-assessed and re- educated on need for morales catheter. Patient educated on catheter and reason for insertion. All questions answered. Morales catheter 16 guage Singaporean inserted with clean sterile technique. Patient tolerated well. Total of 250cc drained.
--- NOTE | 2020-03-24 18:31 | NUR ---
Nutrition Patient encourage to eat dinner independently. Patient appears to have no motivation and decrease appetite. Patient given Glucerna and drank 100% of supplement. Patient noted to attempt to feed self, when patient feed he was more receptive to intake. Rn remained at bedside to continue encouragement.
--- NOTE | 2020-03-24 20:05 | NUR ---
Elimination Small amount of soft, brown stools noted, cleansed and kept dry and comfortable, repositioned for comfort.
[2020-03-24 20:19] LABS: Protein, Urine 33.6 mg/dL (0.0-11.9)
[2020-03-24] MEDS: AMIODARONE HCL 200 MG TAB PO SCH (21:30)
[2020-03-24] MEDS: ATORVASTATIN 20 MG TAB PO SCH (21:31)
[2020-03-25] VITALS (14 sets, daily range): BP systolic 109–154; BP diastolic 65–82
[2020-03-25 03:39] LABS: Basophils # (auto) 0 10 ^3/uL (0-0.2); Basophils % (auto) 0.1 % (0.0-2.0); Eosinophils # (auto) 0 10 ^3/uL (0-0.8); Hemoglobin 15.3 g/dL (13.5-17.5); Lymphocytes # (auto) 0.2 10 ^3/uL (0.4-5.4); Lymphocytes % (auto) 1.3 % (10.0-50.0); Mean Corpuscular Hgb Conc. 33.2 g/dL (32.0-36.0); Mean Corpuscular Volume 84.3 fL (80.0-100.0); Monocytes # (auto) 0.3 10 ^3/uL (0-1.3); Monocytes % (auto) 2.1 % (0.0-12.0); Neutrophils # (auto) 13.4 10 ^3/uL (1.6-8.6); Neutrophils % (auto) 96.5 % (37.0-80.0); Platelet Count (auto) 122 10^3/uL (140-450); Red Blood Cells 5.46 10^6/uL (4.5-5.90); Red Cell Distribution Width 14.2 % (11.8-14.3); White Blood Cell 13.9 10^3/uL (4.4-10.8)
[2020-03-25 03:59] LABS: Albumin 2.1 g/dL (3.4-5.0); Calcium 7.8 mg/dL (8.5-10.1); Potassium 4.8 mmol/L (3.5-5.1)
[2020-03-25 04:04] LABS: BUN/Creatinine Ratio 47.4; Bilirubin, Total 0.8 mg/dL (0.2-1.0); Phosphorus 7.4 mg/dL (2.5-4.90); Total Protein 5.4 g/dL (6.4-8.2); Uric Acid 13.1 mg/dL (3.5-7.2)
--- NOTE | 2020-03-25 06:00 | NUR ---
Elimination Large amount of soft, pasty stools noted, cleansed, linens and gown changed. Repositioned for comfort
--- NOTE | 2020-03-25 06:15 | NUR ---
Temp 95.6, refugio ca provided to keep warm
[2020-03-25] MEDS: ALBUTEROL SULF HFA 90MCG INH 200DOSE IN SCH ×3 (06:47→22:00)
[2020-03-25] MEDS: BUDESONIDE (INHALATION) 180 MCG IH IN SCH ×2 (06:47→22:00)
--- NOTE | 2020-03-25 07:00 | NUR ---
Closing notes Resting on bed with no signs of distress
[2020-03-25] MEDS: ACCU-CHEK COMFORT CURVE STRIP VI SCH ×4 (07:07→22:22)
[2020-03-25] MEDS: InsuLIN REG 1unit/0.01ml Soln (100units/ml) SC SCH ×4 (07:09→22:00)
--- NOTE | 2020-03-25 07:30 | NUR ---
OPENING NOTE ASSUMED CARE OF PATIENT AT THIS TIME. REPORT RECEIVED FROM CHRISTOPHER RN. POC REVIEWED. HEAD TO TOE ASSESSMENT COMPLETE, SEE INTERVENTION SPREADSHEET FOR COMPLETE DETAILS. RECEIVED PT ALERT AND ORIENTED ON COVID PRECAUTION. RECEIVED PT ON HIGH FLOW 60L 02, FI02 55. PT SATING 90%. RECEIVED PT WITH SKIN TEAR TO GLUTEAL FOLD. PT HAS OPTIFOAM IN PLACE. PT DENIES PAIN. MIDLINE TO RICHAR, L WRIST 20G. [place] PATENT AND DRAINING TO GRAVITY , YELLOW CLEAR UOP. BED IN LOWEST LOCKED POSITION. SAFETY PRECAUTIONS IN PLACE AND CALL LIGHT WITHIN REACH.
[2020-03-25] MEDS: FERROUS SULFATE 325 MG TAB PO SCH ×3 (09:03→17:30)
[2020-03-25] MEDS: cefTRIAXone 1GM/50ML D5W 50 ML IV SCH (09:04)
[2020-03-25] MEDS: Glucerna Carbsteady SHAKE Vanilla 8oz PO SCH ×2 (09:05→18:59)
[2020-03-25] MEDS: methylPREDNISolone SOD SUCC 40 MG/ML VL IV SCH ×2 (10:40→22:21)
[2020-03-25] MEDS: CHOLECALCIFEROL (VITD3) 2,000 UNIT CAP PO SCH (10:40)
[2020-03-25] MEDS: APIXABAN 5 MG TAB PO SCH ×2 (10:40→22:21)
[2020-03-25] MEDS: AMIODARONE HCL 200 MG TAB PO SCH ×2 (10:40→22:00)
[2020-03-25] MEDS: ZINC SULFATE 220mg CAP or TAB PO SCH (10:41)
[2020-03-25] MEDS: METOPROLOL TARTRATE 50 MG TAB PO SCH ×2 (10:41→22:00)
[2020-03-25] MEDS: ASCORBIC ACID 1,000 MG TAB PO SCH (10:42)
[2020-03-25] MEDS: SEVELAMER 800 MG TAB PO SCH ×2 (12:05→17:30)
--- NOTE | 2020-03-25 12:30 | NUR ---
MD Dr Sanchez to see patient. No new orders received.
--- NOTE | 2020-03-25 12:59 | NUR ---
PHARMACY T/C FROM PHARMACY. RECOMMENDATIONS FOR PATIENT TO TAKE DOXYCYCLINE X5 DAYS. WILL INFORM DR. DIXON.
--- NOTE | 2020-03-25 15:21 | NUR ---
MD Dr Martinez to see patient. Orders received.
--- NOTE | 2020-03-25 15:36 | NUR ---
FAMILY T/C. PASSWORD VERIFIED. SPOKE WITH PATIENTS "STEP SON" ALYSSA. UPDATED FAMILY WITH POC. ANSWERED ALL QUESTIONS.
[2020-03-25] MEDS: DOXYCYCLINE 100MG/250ML 250 ML IV SCH (17:30)
--- NOTE | 2020-03-25 18:29 | NUR ---
Respiratory note: RECEIVED PT ON HFNC UNIT, UNIT CONNECTED TO MEDICAL AIR AND O2 WALL SOURCE. SHEMAR HEATER CONNECTED TO RED OUTLET. AMBU BAG AND MASK AT BEDSIDE. HFNC CHECK DONE FROM PTS ROOM DOOR DUE TO ISOLATION PRECAUTIONS. NO CHANGES DONE WILL CONTINUE TO MONITOR.
--- NOTE | 2020-03-25 18:52 | NUR ---
CLOSING SHIFT NOTE PT AWAKE EATING DINNER. NO SIGNS OR SYMPTOMS OF DISTRESS. PATIENT DENIES PAIN AT THIS TIME. HIGH FLOW O2 60L AND FIO2 55. SATURATION 88%. BED IN LOWEST LOCKED POSITION, SAFETY PRECAUTIONS IN PLACE AND CALL LIGHT WITHIN REACH.
--- NOTE | 2020-03-25 19:28 | NUR ---
ADMITTED ON 03/20/20 WITH DYSPNEA THAT BEGAN 3 WEEKS BEFORE. PREVIOUS HOSPITALIZATION DISCHARGE DATE : 03/25/20. COVID POSITIVE. HI FLOW 60L AND FIO2 OF 55%. O2 SAT CURRENTLY IS 94%. RR 24. NSR 60. SBP UNDER 150. APPETITE REPORTED POOR BUT IS TAKING HIS GLUCERNA SHAKES. BM TODAY. RICHAR MIDLINE CATHETER AND A 20G IN LEFT WRIST. ON THE HAD AFIB RVR. AMIODARONE DRIP WEANED OFF AND IS NOW ON PO AMIODARONE. BUN INCREASING. DR WOLF IS WATCHING IT FOR NOW. ILIR ALVARADO HS.
--- NOTE | 2020-03-25 20:40 | NUR ---
PATIENT AWAKE. APPROPRIATE. ORIENTED. DENIES PAIN, NAUSEA, DYSPNEA OR DIAPHORETIC SPELLS. WEAK. BAH WELL. TKO IV INFUSING THROUGH THE RIGHT MIDLINE. ALL PULSES PALPABLE. MAYBE 1+ EDEMA IN BOTH LEGS. FULL ROM IN EXTREMITIES. SINUS BRADYCARDIA OF 57. NO ECTOPY. SBP WITHIN PARAMETERS. C[place] IN PLACE. DRAINING DARK CARLOS MANUEL LIQUID.
[2020-03-25 20:43] LABS: Urine Bacteria NONE SEEN /hpf (None Seen); Urine Blood 3+ /uL (Negative); Urine Mucus FEW (None Seen); Urine Specific Gravity 1.019 (1.001-1.035); Urine WBC 53 /hpf (0 - 3); Urine WBC Clumps PRESENT /hpf (None Seen)
--- NOTE | 2020-03-25 22:00 | NUR ---
AMIODARONE AND LOPRESSOR HELD FOR HEART RATE OF 55
[2020-03-25] MEDS: ATORVASTATIN 20 MG TAB PO SCH (22:21)
[2020-03-26] VITALS (14 sets, daily range): BP systolic 118–155; BP diastolic 62–79
--- NOTE | 2020-03-26 00:30 | NUR ---
PATIENT AWAKE, ORIENTED. SPEECH CLEAR. HI FLOW OXYGEN. O2 SATURATION 94%. COARSE , NONPRODUCTIVE. VSS.
--- NOTE | 2020-03-26 02:00 | NUR ---
RESPIRATORY ALARM. RT NOTIFIED. THEY ADDRESSED THE ISSUE. PROBLEM SOLVED. UNABLE TO DRAW BLOOD FROM THE MIDLINE.
--- NOTE | 2020-03-26 02:30 | NUR ---
REQUESTED BEDPAN. TURNED TO ASSIST. TINY SMALL FORMED DARK BROWN STOOL. WU AREA CLEANED AND Z GUARD APPLIED
[2020-03-26] MEDS: DOXYCYCLINE 100MG/250ML 250 ML IV SCH ×2 (03:46→15:22)
--- NOTE | 2020-03-26 04:35 | NUR ---
CHANGED THE LEFT IV DRESSING. THEN FOUND THAT I COULD NOT FLUSH IT. REMOVED IV.
--- NOTE | 2020-03-26 05:00 | NUR ---
CHANGE DRAWSHEET AND PAD
[2020-03-26 05:51] LABS: Albumin 2.3 g/dL (3.4-5.0); BUN/Creatinine Ratio 47.7; Calcium 8.2 mg/dL (8.5-10.1); Potassium 4.4 mmol/L (3.5-5.1)
[2020-03-26 05:53] LABS: Bilirubin, Total 0.5 mg/dL (0.2-1.0); Total Protein 5.4 g/dL (6.4-8.2)
[2020-03-26 06:12] LABS: CRP High Sensitivity 0.52 mg/dL (< 0.3)
[2020-03-26] MEDS: BUDESONIDE (INHALATION) 180 MCG IH IN SCH (06:17)
[2020-03-26] MEDS: ALBUTEROL SULF HFA 90MCG INH 200DOSE IN SCH ×2 (06:17→14:27)
[2020-03-26] MEDS: InsuLIN REG 1unit/0.01ml Soln (100units/ml) SC SCH ×4 (06:24→23:02)
[2020-03-26] MEDS: ACCU-CHEK COMFORT CURVE STRIP VI SCH ×4 (06:25→23:01)
--- NOTE | 2020-03-26 06:50 | NUR ---
CALL CEE BEING ADDRESSED BY ENGINEERING.
--- NOTE | 2020-03-26 07:30 | NUR ---
OPENING NOTE ASSUMED CARE OF PATIENT AT THIS TIME. REPORT RECEIVED FROM CHRISTOPHER RN. POC REVIEWED. HEAD TO TOE ASSESSMENT COMPLETE, SEE INTERVENTION SPREADSHEET FOR COMPLETE DETAILS. RECEIVED PT ALERT AND ORIENTED ON COVID PRECAUTION. RECEIVED PT ON HIGH FLOW 60L 02, FI02 50. PT SATING 94%. RECEIVED PT WITH SKIN TEAR TO GLUTEAL FOLD. PT HAS OPTIFOAM IN PLACE. PT DENIES PAIN. MIDLINE TO RICHAR RUNNING NS TKO @5ML/HR. [place] PATENT AND DRAINING TO GRAVITY , YELLOW CLEAR UOP. BED IN LOWEST LOCKED POSITION. SAFETY PRECAUTIONS IN PLACE AND CALL LIGHT WITHIN REACH.
[2020-03-26] MEDS: Glucerna Carbsteady SHAKE Vanilla 8oz PO SCH ×2 (08:19→17:35)
[2020-03-26] MEDS: FERROUS SULFATE 325 MG TAB PO SCH ×3 (08:19→17:35)
[2020-03-26] MEDS: SEVELAMER 800 MG TAB PO SCH ×3 (08:19→17:35)
[2020-03-26] MEDS: cefTRIAXone 1GM/50ML D5W 50 ML IV SCH (09:22)
[2020-03-26] MEDS: APIXABAN 5 MG TAB PO SCH ×2 (09:57→21:46)
[2020-03-26] MEDS: methylPREDNISolone SOD SUCC 40 MG/ML VL IV SCH ×2 (09:57→21:46)
[2020-03-26] MEDS: ZINC SULFATE 220mg CAP or TAB PO SCH (09:58)
[2020-03-26] MEDS: AMIODARONE HCL 200 MG TAB PO SCH ×2 (09:58→21:46)
[2020-03-26] MEDS: CHOLECALCIFEROL (VITD3) 2,000 UNIT CAP PO SCH (09:58)
[2020-03-26] MEDS: ASCORBIC ACID 1,000 MG TAB PO SCH (09:59)
[2020-03-26] MEDS: METOPROLOL TARTRATE 50 MG TAB PO SCH ×2 (09:59→21:48)
--- NOTE | 2020-03-26 10:25 | NUR ---
FAMILY T/C. PASSWORD VERIFIED. SPOKE WITH PATIENTS "STEP SON" ALYSSA. UPDATED FAMILY WITH POC. ANSWERED ALL QUESTIONS.
--- NOTE | 2020-03-26 11:29 | NUR ---
Nutrition Followup Note Wt 68.0 kg Pt is covid positive in covid isolation. spoke to pt on the phone, pt reports appetite is so-so, pt denies any GI issues. Pt is with a poor po intake avg aeb pt with 23% avg po intake x 2 days per RN note. Pt is with Glucerna 1 carton BID Est energy needs BW [id number] kcal (25-30 kcal/kg BW), Est protein needs 68-74g (1-1.1g/kg BW r/t elev RFT severe hypoalb). will monitor and reassess prn. Labs: Na 133L, BUN 134H, Creat 2.81H, Ca 8.2L, GLUC 368H, Alb 2.3L BM: Pt with 4 BMs 03/25 per Rn note Skin: BS 15 mod risk,full details in care team assistant note PES: Altered nutrition related lab values r.t current chronic medical conidtion aeb severe hypoalb elev creat hyperglycemia Comments 1) consider prostat 1 packet bid as RFT improve 2) refer to CDE on DC 3) continue glucerna 1 carton bid if PO is low 4) continue current plan of care Expected Outcomes/Goals: pt will have improved labs F/u mod 3-5 days Addendum: 03/26/20 at [address] Consider a CCHO 60g diet, Renal Specific diet 70g protein, 2g Na, 2g K, low phos
--- NOTE | 2020-03-26 12:56 | NUR ---
BLOOD GLUCOSE BLOOD SUGAR 456. ADMINISTERED INSULIN PER SLIDE SCALE. DR. DIXON PAGED FOR NOTIFICATION AND POSSIBLE ORDERS.
--- NOTE | 2020-03-26 14:46 | NUR ---
FAMILY T/C. SPOKE TO DAUGHTER OF PATIENT ANGELIA. UPDATED ON POC AND ANSWERED ALL QUESTIONS.
--- NOTE | 2020-03-26 16:29 | NUR ---
Assessment Patient is a 79 year old male, who is unable to communicate, SW called his Arlette to initiate assessment. Per Arlette, patient was alert and oriented prior to admission at [facility]. Per Arlette, Patient needs assistance for all ADL's and assistance with needs physical therapy to regain walking. Per Arlette, patient is retired and receiving social security benefits as income. Per Arlette, patient resides with her and will return home post discharge. Per Arlette, patient will need transportation post discharge. Per Arlette, she and her daughter are his support system. Per Arlette, she is requesting home health services and physical therapy. Discharge Planning: Patient will benefit from physical therapy evaluation to determine home physical therapy. Patient will benefit from home health services to assist with ADL's. There is no other discharge plan to identify at the moment. Addendum: 03/26/20 at 1647 by TRAVIS RENEE SS Amended: Links added.
--- NOTE | 2020-03-26 18:16 | NUR ---
BLOOD GLUCOSE BLOOD GLUCOSE 458. INSULIN GIVEN PER EMAR. RECEIVED NEW ORDERS FROM DR. DIXON.
--- NOTE | 2020-03-26 18:58 | NUR ---
CLOSING NOTE PT AWAKE AND ALERT X4. PT ON HIGH FLOW @ 60L/MIN AND FiO2 @ 50. SATING @ 92% WITH NO DISTRESS NOTED. PT DENIES PAIN AT THIS TIME. COMFORT MEASURES IN PLACE. BED IN LOWEST LOCKED POSITION, SAFETY PRECAUTIONS IN PLACE AND CALL LIGHT WITHIN REACH.
--- NOTE | 2020-03-26 19:40 | NUR ---
report received and assumed care; see interventions for assessment; vs stable at this time with pt. on hi-flow 60L and 50%; pt. on ns at tko with antibiotics; will cont. to monitor.
--- NOTE | 2020-03-26 20:25 | NUR ---
AT PT. BEDSIDE TO DRAW BMP.
[2020-03-26 21:33] LABS: BUN/Creatinine Ratio 41.4; Calcium 8.2 mg/dL (8.5-10.1); Potassium 4.8 mmol/L (3.5-5.1)
[2020-03-26] MEDS: ATORVASTATIN 20 MG TAB PO SCH (21:47)
[2020-03-26] MEDS ORDERED: INSULIN LANTUS (GLARGINE) 1 /0.01ml (100units/ml) SC SCH (22:00)
[2020-03-27] VITALS (17 sets, daily range): BP systolic 125–155; BP diastolic 62–77
[2020-03-27] MEDS: DOXYCYCLINE 100MG/250ML 250 ML IV SCH ×2 (02:47→15:22)
[2020-03-27] MEDS: ACCU-CHEK COMFORT CURVE STRIP VI SCH ×4 (04:28→22:24)
[2020-03-27] MEDS: InsuLIN REG 1unit/0.01ml Soln (100units/ml) SC SCH ×4 (04:28→22:25)
[2020-03-27 05:07] LABS: BUN/Creatinine Ratio 47.2; Potassium 4.9 mmol/L (3.5-5.1)
[2020-03-27 05:13] LABS: Bilirubin, Total 0.4 mg/dL (0.2-1.0); Magnesium 2.7 mg/dL (1.6-2.6); Total Protein 4.9 g/dL (6.4-8.2)
[2020-03-27 05:17] LABS: Basophils # (auto) 0 10 ^3/uL (0-0.2); Basophils % (auto) 0.2 % (0.0-2.0); Eosinophils # (auto) 0 10 ^3/uL (0-0.8); Hematocrit 43.3 % (41.0-53.0); Lymphocytes # (auto) 0.1 10 ^3/uL (0.4-5.4); Lymphocytes % (auto) 0.7 % (10.0-50.0); Mean Corpuscular Hemoglobin 27.8 pg (28.0-32.0); Mean Corpuscular Hgb Conc. 32.3 g/dL (32.0-36.0); Monocytes # (auto) 0.3 10 ^3/uL (0-1.3); Monocytes % (auto) 2.3 % (0.0-12.0); Neutrophils # (auto) 13.7 10 ^3/uL (1.6-8.6); Neutrophils % (auto) 96.8 % (37.0-80.0); Nucleated Red Blood Cells % 0.1 %; Platelet Count (auto) 108 10^3/uL (140-450); Red Blood Cells 5.03 10^6/uL (4.5-5.90); Red Cell Distribution Width 13.8 % (11.8-14.3); White Blood Cell 14.2 10^3/uL (4.4-10.8)
[2020-03-27] MEDS: ALBUTEROL SULF HFA 90MCG INH 200DOSE IN SCH ×4 (06:45→23:16)
[2020-03-27] MEDS: BUDESONIDE (INHALATION) 180 MCG IH IN SCH ×3 (06:45→22:00)
[2020-03-27] MEDS: methylPREDNISolone SOD SUCC 40 MG/ML VL IV SCH ×2 (08:43→22:22)
[2020-03-27] MEDS: cefTRIAXone 1GM/50ML D5W 50 ML IV SCH (08:43)
[2020-03-27] MEDS: SEVELAMER 800 MG TAB PO SCH ×3 (08:43→17:47)
[2020-03-27] MEDS: FERROUS SULFATE 325 MG TAB PO SCH ×3 (08:45→17:47)
[2020-03-27] MEDS: AMIODARONE HCL 200 MG TAB PO SCH ×2 (08:45→22:22)
[2020-03-27] MEDS: APIXABAN 5 MG TAB PO SCH ×2 (08:45→22:23)
[2020-03-27] MEDS: METOPROLOL TARTRATE 50 MG TAB PO SCH ×2 (08:45→22:24)
[2020-03-27] MEDS: ASCORBIC ACID 1,000 MG TAB PO SCH (08:46)
[2020-03-27] MEDS: ZINC SULFATE 220mg CAP or TAB PO SCH (08:46)
[2020-03-27] MEDS: CHOLECALCIFEROL (VITD3) 2,000 UNIT CAP PO SCH (08:46)
[2020-03-27] MEDS: Glucerna Carbsteady SHAKE Vanilla 8oz PO SCH ×2 (08:49→17:48)
--- NOTE | 2020-03-27 11:00 | NUR ---
ASSISTED WITH BM ON BEDPAN, MEDIUM DARK BROWN/GREEN. CLEANSED THOROUGHLY. 2 RNS PRONED PATIENT AFTER EDUCATION PROVIDED ON PRONING AND PATIENT AGREED. DR DIXON AT BEDSIDE AWARE OF HIGH FLOW SETTINGS. WOUND CARE TO SACRAL SKIN TEAR WITH WOUND CLEANSER AND ZGUARD/OPTIFOAM APPLICATION. CALL LIGHT IN REACH.
--- NOTE | 2020-03-27 11:32 | NUR ---
PAGED DR DIXON REGARDING BLOOD SUGAR 440. AWAITING CALL BACK. WILL GIVE INSULIN ACCORDING TO SLIDING SCALE.
--- NOTE | 2020-03-27 11:45 | NUR ---
Family updated on pt status Family of ABAD REYES updated on patient's status and condition. All questions and concerns addressed. Patients son verbalized understanding.
--- NOTE | 2020-03-27 12:07 | NUR ---
D/C planning Regarding social service consult for hospice evaluation. Contact patient Arlette regarding hospice. Arlette is refusing hospice at this time and would like to speak to MD. Bedside nurse will be informed.
--- NOTE | 2020-03-27 12:15 | NUR ---
CARES/SUPINE PATIENT HAD SECOND BM THIS SHIFT, DARK BROWN/GREEN LOOSE. CLEANSED THOROUGHLY AND PLACED IN SUPINE POSITION SO PATIENT CAN EAT LUNCH. SP02 90 UPON REPOSITIONING TO SUPINE FROM PRONE.
--- NOTE | 2020-03-27 14:46 | NUR ---
[facility] DUE TO SPEAKING WITH JOHN REGARDING REFUSAL FOR HOSPICE CARE AT HOME PER MD ORDER. PER WHO HAD PASSWORD STATED SHE CANNOT PHYSICALLY CARE FOR PATIENT AT HOME AND DID NOT UNDERSTAND WHAT HOSPICE WAS. RN EDUCATED ON HOSPICE. AWAITING CALL BACK FROM [facility] AND WILL NOTIFY MD OF REFUSAL. RN WILL ALSO SPEAK WITH PATIENT TO SEE WHAT HIS WISHES ARE.
--- NOTE | 2020-03-27 14:53 | NUR ---
WITNESSED PATIENT PERFORMING INCENTIVE SPIROMETRY ABOUT 500 ML
--- NOTE | 2020-03-27 18:03 | NUR ---
BLOOD GLUCOSE PAGED EARLIER TODAY DUE TO ELEVATED BLOOD GLUCOSE IN THE 'S, LANTUS INCREASED FROM 15 UNITS TO 20 UNITS
--- NOTE | 2020-03-27 19:20 | NUR ---
SHIFT OPEN NOTE RECEIVED REPORT AND ASSUMED CARE OF PATIENT AT THIS TIME. REPORT RECEIVED FROM NOC RN. POC REVIEWED. HEAD TO TOE ASSESSMENT COMPLETE, SEE INTERVENTION SPREADSHEET FOR COMPLETE DETAILS. RECEIVED PT ALERT AND ORIENTED ON COVID PRECAUTION. RECEIVED PT ON HIGH FLOW 50L 02, FI02 50. PT SATING 96%. RECEIVED PT WITH SKIN TEAR TO GLUTEAL FOLD. PT HAS OPTIFOAM IN PLACE. PT DENIES PAIN. MIDLINE TO RICHAR RUNNING NS TKO @5ML/HR. [place] PATENT AND DRAINING TO GRAVITY , YELLOW CLEAR URINE BED IN LOWEST LOCKED POSITION. SAFETY PRECAUTIONS IN PLACE AND CALL LIGHT WITHIN REACH.
[2020-03-27] MEDS: ATORVASTATIN 20 MG TAB PO SCH (22:23)
[2020-03-27] MEDS: INSULIN LANTUS (GLARGINE) 1 /0.01ml (100units/ml) SC SCH (22:26)
--- NOTE | 2020-03-27 22:39 | NUR ---
Critical Glucose Level Reported glucose level of [address] Scott, no additional orders at this time.
--- NOTE | 2020-03-27 23:21 | NUR ---
Patient Rounding Patient resting quietly in bed with eyes closed, patient currently on HF NC 50L@ 50% FIO2 with oxygen saturation of 95%
[2020-03-28] VITALS (11 sets, daily range): BP systolic 113–156; BP diastolic 54–80
--- NOTE | 2020-03-28 01:45 | NUR ---
patient rounding patient resting quietly in bed request for light weight blanket granted. patient is sating 95% on HF NC 50l @ 50% FIO2
[2020-03-28] MEDS: DOXYCYCLINE 100MG/250ML 250 ML IV SCH ×2 (02:33→15:48)
--- NOTE | 2020-03-28 02:50 | NUR ---
Lab Draw Midline performed lab draw from midline using clean technique hub changed, dressing intact no s/s of redness or tenderness.
[2020-03-28 04:28] LABS: Basophils # (auto) 0.1 10 ^3/uL (0-0.2); Basophils % (auto) 0.3 % (0.0-2.0); Eosinophils # (auto) 0 10 ^3/uL (0-0.8); Hematocrit 39.3 % (41.0-53.0); Lymphocytes # (auto) 0.1 10 ^3/uL (0.4-5.4); Lymphocytes % (auto) 0.7 % (10.0-50.0); Mean Corpuscular Hemoglobin 28.3 pg (28.0-32.0); Mean Corpuscular Volume 85.8 fL (80.0-100.0); Monocytes # (auto) 0.6 10 ^3/uL (0-1.3); Monocytes % (auto) 3.1 % (0.0-12.0); Neutrophils # (auto) 19.2 10 ^3/uL (1.6-8.6); Neutrophils % (auto) 95.9 % (37.0-80.0); Nucleated Red Blood Cells % 0.2 %; Platelet Count (auto) 122 10^3/uL (140-450); Red Blood Cells 4.58 10^6/uL (4.5-5.90); Red Cell Distribution Width 13.8 % (11.8-14.3)
[2020-03-28 05:01] LABS: Calcium 8.6 mg/dL (8.5-10.1); Magnesium 3.3 mg/dL (1.6-2.6)
[2020-03-28 05:52] LABS: Potassium 5.6 mmol/L (3.5-5.1)
--- NOTE | 2020-03-28 06:01 | NUR ---
Critical Lab Values Notified Dr Albert of patient critical lab values Potassium 5.6 and BUN of 135 No New orders at this time per provider.
[2020-03-28] MEDS: BUDESONIDE (INHALATION) 180 MCG IH IN SCH ×2 (06:10→22:00)
[2020-03-28] MEDS: ALBUTEROL SULF HFA 90MCG INH 200DOSE IN SCH ×3 (06:10→22:00)
--- NOTE | 2020-03-28 06:25 | NUR ---
Critical glucose Level Glucose Level [address] Albert no new orders at this time patient covered with sliding scale 15 units regular insulin
[2020-03-28] MEDS: ACCU-CHEK COMFORT CURVE STRIP VI SCH ×4 (06:28→22:13)
[2020-03-28] MEDS: InsuLIN REG 1unit/0.01ml Soln (100units/ml) SC SCH ×4 (06:32→22:16)
--- NOTE | 2020-03-28 07:00 | NUR ---
Bed Causey Assisted patient with bed causey for bowel movement, so area care provided with partial linen change, patient tolerated process with minimal distress
--- NOTE | 2020-03-28 07:15 | NUR ---
End shift Note Provided report to Haven and endorsed care.
--- NOTE | 2020-03-28 07:30 | NUR ---
REPORT REPORT RECEIVED FROM NIGHT RN. PT IN ISOLATION FOR + COVID. PT RESTING IN BED AND WATCHING TV. DENIES ANY PAIN OR RESPIRATORY DISTRESS. CONTINUE TO MONITOR.
[2020-03-28] MEDS: Glucerna Carbsteady SHAKE Vanilla 8oz PO SCH ×3 (08:05→20:32)
[2020-03-28] MEDS: FERROUS SULFATE 325 MG TAB PO SCH ×3 (08:05→17:48)
[2020-03-28] MEDS: SEVELAMER 800 MG TAB PO SCH ×3 (08:06→17:48)
--- NOTE | 2020-03-28 08:10 | NUR ---
ASSESSMENT PT AWKE AND A/O X4. FOLLOWS SIMPLE COMMANDS. ABLE TO HELP REPOSITION SELF IN BED. ON HIGH FLOW O2 AT 50% FIO2 AND WITH A 50L FLOW. LUNGS ARE CLEAR AND DIMINISHED THROUGHOUT. PT WITH OCCASIONAL DRY COUGH. TELE SR 69. PALPABLE PULSES TO ALL EXTREMITIES. ABD SOFT WITH HYPOACTIVE BOWEL SOUNDS NOTED. LAST BM WAS 03/27. [place] CATHETER DRAINING CLEAR YELLOW URINE. PT NOTED WO HAVE HYPERPIGMENTATION TO RLE. PT TURNED AND PT HAS A SACRAL OPTIFOAM IN PLACE OVER A SKIN TEAR IN THE FOLD. PT WITH A RUE MIDLINE THAT FLUSHES AND DRAWS BLOOD, SITE BENIGN. DENIES ANY PAIN OR SOB. SERVED BREAKFAST BUT PT DOES NOT WANT TO EAT. TOOK HIS SCHEDULED PILLS. CONTINUE TO MONITOR.
[2020-03-28] MEDS: cefTRIAXone 1GM/50ML D5W 50 ML IV SCH (09:27)
[2020-03-28] MEDS: methylPREDNISolone SOD SUCC 40 MG/ML VL IV SCH (09:37)
--- NOTE | 2020-03-28 10:05 | NUR ---
PAGING DR MEREDITH REGARDING K 5.6
[2020-03-28] MEDS ORDERED: INSULIN LANTUS (GLARGINE) 1 /0.01ml (100units/ml) SC ONE (10:15)
[2020-03-28] MEDS: CHOLECALCIFEROL (VITD3) 2,000 UNIT CAP PO SCH (10:22)
[2020-03-28] MEDS: ZINC SULFATE 220mg CAP or TAB PO SCH (10:22)
[2020-03-28] MEDS: AMIODARONE HCL 200 MG TAB PO SCH ×2 (10:22→22:12)
[2020-03-28] MEDS: APIXABAN 5 MG TAB PO SCH ×2 (10:22→22:12)
[2020-03-28] MEDS: ASCORBIC ACID 1,000 MG TAB PO SCH (10:22)
[2020-03-28] MEDS: METOPROLOL TARTRATE 50 MG TAB PO SCH ×2 (10:23→23:00)
[2020-03-28] MEDS ORDERED: SODIUM ZIRCONIUM CYCL 10 GM PAK PO ONE (10:45)
--- NOTE | 2020-03-28 11:00 | NUR ---
DR MEREDITH HERE MAKING ROUNDS AND DISCUSSED THE PT'S ELEVATED K LEVEL. HE HAS PLACED AN ORDER FOR [facility].
--- NOTE | 2020-03-28 12:00 | NUR ---
WOULD NOT TAKE SCHEDULED MEDS Addendum: 03/28/20 at 1944 by Haven Georges RN EXCEPT I CONVINCED PT TO TAKE THE [facility].
--- NOTE | 2020-03-28 12:14 | NUR ---
WOUND CARE NOTE: Wound care in to see patient for reevaluation of sacral wound and skin integrity monitoring. Patient continue resting in low air loss bed in SDU in Rm. 265. He's on airborne precautions due to positive CoVid19. Patient is awake, alert and follow simple direction. He's in no stated pain at this time and appears to be in no pain using Elizondo Johnson Faces Pain Scale. He's able to assist in turning and repositioning and his Homero score is 15. Ski/wound assessment done with the assistance of patient's nurse, PASCALE Orourke. Patient's documented sacral skin tear to medial distal sacral area remain open. Wound measuring 1.2x2cm no measurable depth. 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 Wound is dark red with dark red non-blanchable surrounding skin. Makenna care given, new photograph taken for reference. Applied Z Guard cream to open wound area and covered with Opti foam gentle dressing. Patient tolerated well. Repositioned for comfort, redistributed pressure points with pillows. PASCALE Orourke at bedside. RECOMMENDATION: Continuation of all wound care orders MD prescribed, continue with skin/wound plan of care, continue monitoring by wound care while patient is hospitalized. Addendum: 03/28/20 at 1359 by Hermelinda Arreaga RN Amended: Links added.
[2020-03-28] MEDS ORDERED: ONDANSETRON HCL 4 MG/2 ML VIAL ONE (12:47)
--- NOTE | 2020-03-28 12:50 | NUR ---
PT C/O NAUSEA. DR CLEMENTE HERE MAKING ROUNDS. ORDER OBTAINED FOR ZOFRAN 4 MG IV Q 4 HRS PRN NAUSEA. FIRST DOSE ADMINISTERED.
[2020-03-28] MEDS ORDERED: ONDANSETRON HCL 4 MG/2 ML VIAL IV PRN (13:00)
--- NOTE | 2020-03-28 17:00 | NUR ---
ACCUCHECK OF 438 AND PT GIVEN REGULAR INSULIN 20 UNITS SQ.
--- NOTE | 2020-03-28 18:30 | NUR ---
PT DOES NOT WANT HIS DINNER BUT ASKING FOR HIS GLUCERNA SHAKE WHICH WAS NOT ON THE TRAY. CALLED AND LEFT A MESSAGE FOR THE DIETARY DEPT.
[2020-03-28 18:43] LABS: Calcium 8.1 mg/dL (8.5-10.1)
--- NOTE | 2020-03-28 19:10 | NUR ---
SHIFT OPEN NOTE RECEIVED REPORT AND ASSUMED CARE OF PATIENT AT THIS TIME. REPORT RECEIVED FROM CHRISTOPHER RN. POC REVIEWED. RECEIVED PT ALERT AND ORIENTED ON COVID PRECAUTION. RECEIVED PT ON HIGH FLOW 50L 02, FI02 50. PT SATING 98%. RECEIVED PT WITH SKIN TEAR TO GLUTEAL FOLD. PT HAS OPTIFOAM IN PLACE. PT DENIES PAIN. MIDLINE TO RICHAR RUNNING NS TKO @5ML/HR. [place] PATENT AND DRAINING TO GRAVITY , YELLOW CLEAR URINE BED IN LOWEST LOCKED POSITION. SAFETY PRECAUTIONS IN PLACE AND CALL LIGHT WITHIN REACH.
[2020-03-28 19:15] LABS: Potassium 5.8 mmol/L (3.5-5.1)
--- NOTE | 2020-03-28 19:15 | NUR ---
CRITICAL LABS/PAGING NOTIFIED BY LAB OF CRITICAL RESULTS K 5.8 GLUCOSE 429 BUN [address] MEREDITH .
--- NOTE | 2020-03-28 19:30 | NUR ---
REPORT REPORT GIVEN TO JOSIE NEGRETE RN.
--- NOTE | 2020-03-28 19:50 | NUR ---
CRITICAL LABS NO CALL BACK FROM . RE-PAGED DR MEREDITH.
--- NOTE | 2020-03-28 22:10 | NUR ---
Patient rounding Patient resting quietly in bed with out s/s of distress patient able to make wishes known, provided patient with sips of water and assistance with repositioning patient remains on HF NC 50L @50% FIO2 with oxygen saturation of 94%
[2020-03-28] MEDS: ATORVASTATIN 20 MG TAB PO SCH (22:12)
[2020-03-28] MEDS: INSULIN LANTUS (GLARGINE) 1 /0.01ml (100units/ml) SC SCH (22:17)
--- NOTE | 2020-03-28 23:00 | NUR ---
LOPRESSOR HELD Lopressor held due to HR of 62 and BP 113/50
[2020-03-29] VITALS (11 sets, daily range): BP systolic 95–119; BP diastolic 40–61
--- NOTE | 2020-03-29 00:52 | NUR ---
Patient Rounding Patient currently resting quietly in bed with eyes closed and without s/s of distress bed is in the lowest position with bed rails up x3 with break applied.
[2020-03-29] MEDS: DOXYCYCLINE 100MG/250ML 250 ML IV SCH ×2 (02:31→15:49)
[2020-03-29 03:21] LABS: Basophils # (auto) 0.1 10 ^3/uL (0-0.2); Basophils % (auto) 0.3 % (0.0-2.0); Eosinophils # (auto) 0 10 ^3/uL (0-0.8); Hematocrit 34.3 % (41.0-53.0); Hemoglobin 11.5 g/dL (13.5-17.5); Lymphocytes # (auto) 0.6 10 ^3/uL (0.4-5.4); Lymphocytes % (auto) 2.4 % (10.0-50.0); Mean Corpuscular Hgb Conc. 33.5 g/dL (32.0-36.0); Mean Corpuscular Volume 86.4 fL (80.0-100.0); Monocytes # (auto) 1.1 10 ^3/uL (0-1.3); Monocytes % (auto) 4.6 % (0.0-12.0); Neutrophils # (auto) 21.9 10 ^3/uL (1.6-8.6); Neutrophils % (auto) 92.7 % (37.0-80.0); Nucleated Red Blood Cells % 0.5 %; Platelet Count (auto) 117 10^3/uL (140-450); Red Blood Cells 3.97 10^6/uL (4.5-5.90); White Blood Cell 23.6 10^3/uL (4.4-10.8)
--- NOTE | 2020-03-29 03:45 | NUR ---
Morning Care Patient received CHG wipe bath including so area cleanse and morales care. partial linen change and gown change patient tolerated process with minimal distress.
[2020-03-29 03:59] LABS: BUN/Creatinine Ratio 59.7
[2020-03-29 04:11] LABS: Potassium 6.2 mmol/L (3.5-5.1)
[2020-03-29] MEDS ORDERED: DEXTROSE (50%) 50ML SYRG IV ONE (04:15)
[2020-03-29] MEDS ORDERED: InsuLIN REG 1unit/0.01ml Soln (100units/ml) IV ONE (04:15)
--- NOTE | 2020-03-29 04:15 | NUR ---
Critical Lab Values Notified Dr Albert of patient critical lab values Potassium 6.2 and BUN of 166 Creat 2.78 New orders received and read back
[2020-03-29] MEDS: ALBUTEROL SULF HFA 90MCG INH 200DOSE IN SCH ×3 (06:00→18:29)
--- NOTE | 2020-03-29 06:28 | NUR ---
End Shift Note Will provide shift report and endorse care patient had critical lab values of Potassium 6.2 BUN 166 and Creat 2.78 Patient was given 1 amp of D-50 and 10 units Insulin RN IV No redraw labs have been ordered at this time. Patient also has elevating WBC's 03/27 14.2 03/28 20.0 03/29 23.6 patient remains afebrile mild tachypnea low 20's and SPB in the 90's - 113, at this time no repeat lactic has been ordered. patient remains on 50l @50% FIO2 with Oxygen Saturation of 98-100%
[2020-03-29] MEDS: BUDESONIDE (INHALATION) 180 MCG IH IN SCH ×2 (06:38→18:29)
[2020-03-29] MEDS: InsuLIN REG 1unit/0.01ml Soln (100units/ml) SC SCH ×4 (06:50→21:33)
[2020-03-29] MEDS: ACCU-CHEK COMFORT CURVE STRIP VI SCH ×4 (06:55→21:32)
--- NOTE | 2020-03-29 07:00 | NUR ---
Report from Leanne Maki Patient on High flow 40L/40% FIO2, RR 24 in no obvious signs of distress. Sleeping in bed, calm. Patient in NSR, last BM 03/27/20, refusing food at this time only intake glucerna. Last BSC 351, 20u given. Velazquez catheter to gravity 200L output evening shift. Skin tear sacrum, wound consult completed. IV access right arm midline. Patient has K+6.2, Cr 2.78, BUN 166 a.m. labs today, per oncall hospitalist p.[email or web address] RN administered 1 amp D5, and 10u of insulin. Metropolol held p.m. shift d/t parameters required. WBC trending up, a.m. labs 23.6. Will continue to monitor and discuss with physicians.
--- NOTE | 2020-03-29 08:30 | NUR ---
RN bedside Patient awake on high flow 40/40%, patient reports 0/10 pain and no change in symptoms. Patient does want to eat breakfast. Discussed plan of care and all questions answered.
[2020-03-29] MEDS: FERROUS SULFATE 325 MG TAB PO SCH ×3 (09:03→17:56)
[2020-03-29] MEDS: Glucerna Carbsteady SHAKE Vanilla 8oz PO SCH ×2 (09:03→17:56)
[2020-03-29] MEDS: cefTRIAXone 1GM/50ML D5W 50 ML IV SCH (09:04)
[2020-03-29] MEDS: METOPROLOL TARTRATE 50 MG TAB PO SCH ×2 (10:00→21:31)
[2020-03-29] MEDS: INSULIN LANTUS (GLARGINE) 1 /0.01ml (100units/ml) SC SCH ×2 (10:00→21:33)
[2020-03-29] MEDS: AMIODARONE HCL 200 MG TAB PO SCH ×2 (10:00→21:31)
--- NOTE | 2020-03-29 10:10 | NUR ---
RN bedside. Oral liquids for patient, patient is too weak to grab cup by himself. Patient encouraged to turn and reposition, patient up to pillow.
[2020-03-29] MEDS: methylPREDNISolone SOD SUCC 40 MG/ML VL IV SCH (11:25)
[2020-03-29] MEDS: ZINC SULFATE 220mg CAP or TAB PO SCH (11:25)
[2020-03-29] MEDS: APIXABAN 5 MG TAB PO SCH ×2 (11:31→21:31)
[2020-03-29] MEDS: CHOLECALCIFEROL (VITD3) 2,000 UNIT CAP PO SCH (11:32)
--- NOTE | 2020-03-29 11:40 | NUR ---
Dr. Christopher bedside Udated on status. New orders to recheck potassium at 1200, initiated norepinephrine if patient systolic drops below 90. Discussed family planning an clarifying families wishes.
[2020-03-29] MEDS: ASCORBIC ACID 1,000 MG TAB PO SCH (11:42)
--- NOTE | 2020-03-29 12:23 | NUR ---
Nutrition Followup Note Wt 68.2 kg Pt is covid positive in covid isolation. pt on O2 high flow per RN. pt is currently on renal std diet with Glucerna 1 carton bid with inadequate Po of < 50% x 4 per RN doc. per records pt with KARTHIK on CKD Est energy needs BW [id number] kcal (25-30 kcal/kg BW), Est protein needs 68-74g (1-1.1g/kg BW r/t elev RFT severe hypoalb). will monitor and reassess prn. Labs: BUN 166 H CREAT 2.78 H GLU 311 H K 6.2 H BM: Pt with 2 BM today per Rn note Skin: BS 15 mod risk,full details in field care manager note PES: Altered nutrition related lab values r.t current chronic medical condition aeb severe hypoalb elev creat hyperglycemia Comments: Will continue to monitor PO intake, skin status. F/u mod 3-5 days Rec: 1) consider prostat 1 packet bid as RFT improve 2) refer to CDE on DC 3) Consider a CCHO 60g diet, Renal Specific diet 70g protein, 2g Na, 2g K, low phos 4) continue current plan of care
--- NOTE | 2020-03-29 13:15 | NUR ---
Dr. Kline on unit Updated on patients status, including severe weakness and fatigue. Discussed hypotension and urine output of 200 ml during p.m. shift. New order for 500 ml bolus and repeat BMP.
[2020-03-29] MEDS ORDERED: SODIUM CHLORIDE 0.9% 500 ML IV ONE (13:30)
--- NOTE | 2020-03-29 15:02 | NUR ---
Patients son-in law Goran. Called for update and discussed plan of care. Discussed patient decision for full code and does want to intubate.
[2020-03-29 18:07] LABS: Calcium 8.1 mg/dL (8.5-10.1)
[2020-03-29 18:09] LABS: BUN/Creatinine Ratio 60.9
[2020-03-29 18:18] LABS: Potassium 5.9 mmol/L (3.5-5.1)
--- NOTE | 2020-03-29 18:18 | NUR ---
CRITICAL LABS k+ 5.9, BUN 181, Called Dr. Kline and left message
--- NOTE | 2020-03-29 18:21 | NUR ---
RN called Dr. Kline Called to report critical labs.
--- NOTE | 2020-03-29 19:00 | NUR ---
Report to Thea ASHRAF
--- NOTE | 2020-03-29 20:00 | NUR ---
SHIFT OPENING NOTE RECEIVED PATIENT AWAKE, ALERT AND ORIENTED X4. VERY WEAK IN BED. NO SOB, DISTRESS OR PAIN NOTED. ON HIGH FLOW NASAL CANNULA 40L, 40% FI02 POX 93%. [place] CATH DRAINING YELLOW CLEAR URINE TO GRAVITY. PHYSICAL ASSESSMENT COMPLETED, SEE INTERVENTIONS. INSTRUCTED ON POC AND TO CALL FOR ASSIST NEEDED. BED IS IN THE LOWEST POSITION WITH SIDE RAILS UP X2, CALL LIGHT IS WITHIN REACH.
[2020-03-29] MEDS: SODIUM ZIRCONIUM CYCL 10 GM PAK PO SCH (21:31)
[2020-03-29] MEDS: ATORVASTATIN 20 MG TAB PO SCH (21:31)
--- NOTE | 2020-03-29 22:00 | NUR ---
SPOKE WITH DAUGHTER ANGELIA UPDATED HER ON PATIENTS STATUS AND POC. VERBALIZED UNDERSTANDING.
[2020-03-30] VITALS (8 sets, daily range): BP systolic 104–126; BP diastolic 39–81
--- NOTE | 2020-03-30 03:00 | NUR ---
ROUNDS PATIENT IS QUIETLY LAYING N BED SLEEPING. NO SOB, DISTRESS OR PAIN NOTED. POX 94%. WILL CONTINUE TO CLOSELY MONITOR.
[2020-03-30] MEDS: DOXYCYCLINE 100MG/250ML 250 ML IV SCH (03:29)
[2020-03-30 04:30] LABS: Calcium 8.4 mg/dL (8.5-10.1)
[2020-03-30 04:34] LABS: BUN/Creatinine Ratio 59.4; Phosphorus 4.9 mg/dL (2.5-4.90)
[2020-03-30 04:45] LABS: Potassium 6.3 mmol/L (3.5-5.1)
[2020-03-30] MEDS: ACCU-CHEK COMFORT CURVE STRIP VI SCH ×4 (06:12→21:55)
[2020-03-30] MEDS: SODIUM ZIRCONIUM CYCL 10 GM PAK PO SCH ×3 (06:12→21:53)
[2020-03-30] MEDS: InsuLIN REG 1unit/0.01ml Soln (100units/ml) SC SCH ×4 (06:14→22:11)
[2020-03-30] MEDS: BUDESONIDE (INHALATION) 180 MCG IH IN SCH ×2 (06:31→22:47)
[2020-03-30] MEDS: ALBUTEROL SULF HFA 90MCG INH 200DOSE IN SCH ×3 (06:31→22:48)
--- NOTE | 2020-03-30 06:31 | NUR ---
Respiratory note: RECEIVED PT FROM CHRONOMETER ASSEMBLER ON HFNC, WITH NASAL PRONGS IN PLACE. NO REDNESS/SKIN BREAK DOWN NOTED. WATER LEVEL ADEQUATE. BS ARE CLEAR/DIMINISHED BILATERALLY. INCREASED FLOW TO 45. PT TOLERATED CHANGE WELL. NO OTHER CHANGES MADE/ORDERED AT THIS TIME. WILL CONTINUE TO MONITOR PT. CHARTING COMPLETE FROM OUTSIDE OF PT ROOM PER COVID-19 PRECAUTIONS/PROTOCOL.
--- NOTE | 2020-03-30 07:25 | NUR ---
END OF SHIFT REPORT GIVEN AND CARE ENDORSED TO EVONNE ASHRAF.
--- NOTE | 2020-03-30 07:30 | NUR ---
OPENING NOTE ASSUMED CARE OF PATIENT AT THIS TIME. REPORT RECEIVED FROM CHRISTOPHER RN. POC REVIEWED. HEAD TO TOE ASSESSMENT COMPLETE, SEE INTERVENTION SPREADSHEET FOR COMPLETE DETAILS. RECEIVED PT ALERT AND ORIENTED ON COVID PRECAUTION. RECEIVED PT ON HIGH FLOW 40L 02, FI02 40%. PT SATING 90%. RECEIVED PT WITH SKIN TEAR TO GLUTEAL FOLD. PT HAS OPTIFOAM IN PLACE. PT DENIES PAIN. MIDLINE TO RICHAR RUNNING NS TKO @5ML/HR. [place] PATENT AND DRAINING TO GRAVITY , YELLOW CLEAR UOP. BED IN LOWEST LOCKED POSITION. SAFETY PRECAUTIONS IN PLACE AND CALL LIGHT WITHIN REACH.
[2020-03-30] MEDS: FERROUS SULFATE 325 MG TAB PO SCH ×3 (07:59→17:38)
[2020-03-30] MEDS: Glucerna Carbsteady SHAKE Vanilla 8oz PO SCH ×2 (08:00→17:38)
[2020-03-30] MEDS: cefTRIAXone 1GM/50ML D5W 50 ML IV SCH (08:34)
[2020-03-30 09:46] LABS: Albumin 1.7 g/dL (3.4-5.0); BUN/Creatinine Ratio 57.5; Bilirubin, Total 0.3 mg/dL (0.2-1.0); Calcium 8.5 mg/dL (8.5-10.1)
[2020-03-30 09:51] LABS: Potassium 5.9 mmol/L (3.5-5.1)
--- NOTE | 2020-03-30 09:52 | NUR ---
CRITICAL LABS T/C FROM LABORATORY. CRITICAL POTASSIUM LEVEL 5.9 AND BUN 180. WILL NOTIFY MD OF CRITICAL VALUES.
[2020-03-30] MEDS: AMIODARONE HCL 200 MG TAB PO SCH ×2 (10:00→10:17)
[2020-03-30] MEDS: APIXABAN 5 MG TAB PO SCH ×3 (10:00→21:53)
[2020-03-30] MEDS: METOPROLOL TARTRATE 50 MG TAB PO SCH ×3 (10:00→21:54)
[2020-03-30] MEDS: methylPREDNISolone SOD SUCC 40 MG/ML VL IV SCH (10:16)
[2020-03-30] MEDS: CHOLECALCIFEROL (VITD3) 2,000 UNIT CAP PO SCH (10:17)
[2020-03-30] MEDS: ZINC SULFATE 220mg CAP or TAB PO SCH (10:17)
[2020-03-30] MEDS: INSULIN LANTUS (GLARGINE) 1 /0.01ml (100units/ml) SC SCH ×2 (10:20→22:12)
[2020-03-30] MEDS: ASCORBIC ACID 1,000 MG TAB PO SCH (10:20)
--- NOTE | 2020-03-30 10:36 | NUR ---
Respiratory note: PT PLACED ON 6L OXYMIZER. PT TOLERATED CHANGE WELL. SPO2 98%, HR 65, RR 22. RN AWARE. WILL CONTINUE TO MONITOR PT. CHARTING COMPLETE FROM OUTSIDE OF PT ROOM PER COVID-19 PRECAUTIONS/PROTOCOL.
--- NOTE | 2020-03-30 11:37 | NUR ---
re-assessment re: consult Per patients Arlette, she is requesting SNF placement or [facility] on discharge. Per Arlette she wants patient to get back to his baseline prior to returning home on discharge. Addendum: 03/30/20 at 1138 by Dora MEDEIROS Amended: Links added.
--- NOTE | 2020-03-30 12:05 | NUR ---
Respiratory note: PT FIO2 TITRATED TO 5L OXYMIZER. PT TOLERATED CHANGE WELL. SPO2 96%, HR 59, RR 21. RN AWARE. WILL CONTINUE TO MONITOR PT. CHARTING COMPLETE FROM OUTSIDE OF PT ROOM PER COVID-19 PRECAUTIONS/PROTOCOL.
--- NOTE | 2020-03-30 13:41 | NUR ---
MD Dr Rodrigues to see patient. updated on recent labs.
[2020-03-30] MEDS: SODIUM BICARBONATE 650 MG TAB PO SCH (14:15)
[2020-03-30] MEDS ORDERED: DEXTROSE (50%) 50ML SYRG IV ONE (14:15)
[2020-03-30] MEDS ORDERED: InsuLIN REG 1unit/0.01ml Soln (100units/ml) IV ONE (14:15)
--- NOTE | 2020-03-30 18:30 | NUR ---
CLOSING NOTE PT RESTING WITH RESPIRATIONS EVEN AND UNLABORED. PT HAS OXYMIZER AT 5L/MIN. SATING @ 92% WITH NO DISTRESS NOTED. PT SHOWS NO SIGNS OF DISTRESS. COMFORT MEASURES IN PLACE. BED IN LOWEST LOCKED POSITION, SAFETY PRECAUTIONS IN PLACE AND CALL LIGHT WITHIN REACH.
--- NOTE | 2020-03-30 19:45 | NUR ---
REPORT GIVEN TO CHRIS ASHRAF IN TELE ALL QUESTIONS ANSWERED.
--- NOTE | 2020-03-30 20:07 | NUR ---
Telemetry admit from room 265 ABAD REYES admitted to Telemetry unit after SBAR received from Shanthi Garcia, whom was in room during transfer. patient is alert and orientated times 3.Patient oxygen saturation in the 80's upon arrival patient placed on 12 l oxymizer. Respiration 21, after placing patient on 12l Oxymizer 92%. patient denies sob distress or pain. Patient oriented to CHRIS MOROCHO RN primary RN, unit, room, bed, and unit policies regarding patient care and visiting hours. Patient now on continuous telemetry monitoring, tele box # 21 and telemetry reading on arrival to unit is SR 71. Patient placed on bedside oxygen, encouraged to call if they need something. Fall precautions in place and call light within reach.
--- NOTE | 2020-03-30 20:10 | NUR ---
TRANSFER TO TELE PATIENT TRANSFERRED TO ROOM 233 VIA BED AND PORTABLE 02 TRANSFERRED [facility] BED. ALL BELONGINGS TAKEN WITH PATIENT.
[2020-03-30] MEDS: ATORVASTATIN 20 MG TAB PO SCH (21:53)
[2020-03-31] VITALS (24 sets, daily range): BP systolic 56–136; BP diastolic 22–81
--- NOTE | 2020-03-31 00:02 | NUR ---
patient switched to continuous oxygen monitor at bedside saturation 94% at 12l Oxymizer
--- NOTE | 2020-03-31 04:55 | NUR ---
Code Assist Patient noticed to be bradycardiac in the low 40's upon entering room patient is unresponsive with agonal breathing and oxygen saturation at 75%. Code assist called.
--- NOTE | 2020-03-31 05:06 | NUR ---
RT NOTE: CODE ASSIST CALLED, PT NON RESPONSIVE AND AGONAL BREATHING. PT BAGGED WITH NO CHANGE. SPO2 42%, FAINT PULSES. PT INTUBATED ON FIRST ATTEMPT. GOOD COLOR CHANGE ON ETCO2. BILATERAL BS.
[2020-03-31] MEDS ORDERED: DOPamine 1600MCG/ML D5W 250 ML IV ONE (05:11)
--- NOTE | 2020-03-31 05:28 | NUR ---
Family Arlette notified of patient status.Per arlette she will call back later.
[2020-03-31] MEDS ORDERED: DOPamine 1600MCG/ML D5W 250 ML IV SCH (05:45)
--- NOTE | 2020-03-31 05:46 | NUR ---
Patient transferred to [facility] by alternative energy engineer and Automotive Mechanical Engineer
[2020-03-31] MEDS ORDERED: MIDAZOLAM DRIP 50 mg/50mL 50 ML IV ONE (05:59)
[2020-03-31] MEDS: ALBUTEROL SULF HFA 90MCG INH 200DOSE IN SCH (06:00)
[2020-03-31] MEDS: MIDAZOLAM DRIP 50 mg/50mL 50 ML IV SCH ×2 (06:30→09:02)
--- NOTE | 2020-03-31 06:30 | NUR ---
SEDATION: Versed gtt started at 5mg/hr for sedation. To continue to monitor pt.
--- NOTE | 2020-03-31 06:38 | NUR ---
NGT: 16 Fr NGT placed via right nare. Placement confirmed via auscultation, gastric contents aspirated, and placement verified after reviewing CXR that was completed following intubation. NGT clamped at this time.
--- NOTE | 2020-03-31 06:40 | NUR ---
CXR: PCXR performed at bedside to confirm ETT placement.
--- NOTE | 2020-03-31 06:41 | NUR ---
Spoke with Arlette. questions and concerns answered.
--- NOTE | 2020-03-31 06:42 | NUR ---
0626report given to poli aragon
[2020-03-31] MEDS: InsuLIN REG 1unit/0.01ml Soln (100units/ml) SC SCH ×2 (07:00→11:30)
--- NOTE | 2020-03-31 07:01 | NUR ---
Received report from Samra ASHRAF and update from Tato ASHRAF. Pt tolerating vent at this time. Iso for covid. No S/S of distress. Report given, care endorsed.
[2020-03-31] MEDS: ACCU-CHEK COMFORT CURVE STRIP VI SCH ×2 (07:22→11:30)
--- NOTE | 2020-03-31 07:25 | NUR ---
Report given to Christopher ASHRAF. After report pt desat to 47%, pt suctioned. Now sat 100%. BP sys 68, pt repositioned and recycled BP now sys 93. Dr. Christopher paged for orders and update. Care endorsed.
[2020-03-31 07:34] LABS: Hematocrit 19.6 % (41.0-53.0); Mean Corpuscular Hemoglobin 28.8 pg (28.0-32.0); Mean Corpuscular Hgb Conc. 32.6 g/dL (32.0-36.0); Red Blood Cells 2.21 10^6/uL (4.5-5.90)
[2020-03-31 07:36] LABS: Mean Corpuscular Volume 88.5 fL (80.0-100.0); Platelet Count (auto) 144 10^3/uL (140-450); Red Cell Distribution Width 13.9 % (11.8-14.3); White Blood Cell 23.7 10^3/uL (4.4-10.8)
[2020-03-31 07:49] LABS: Hemoglobin 6.4 g/dL (13.5-17.5)
[2020-03-31 07:51] LABS: Basophils % (manual) 0 (0.0-2.0); Blast Cells 0; Eosinophils % (manual) 0 (0-7); Monocytes % (manual) 0 (0-12); Promyelocytes % 0; Reactive Lymphocytes 0
[2020-03-31 07:53] LABS: BUN/Creatinine Ratio 51.8; Calcium 7.9 mg/dL (8.5-10.1)
[2020-03-31 07:55] LABS: Potassium 5.7 mmol/L (3.5-5.1)
[2020-03-31] MEDS: Glucerna Carbsteady SHAKE Vanilla 8oz PO SCH (08:00)
--- NOTE | 2020-03-31 08:47 | NUR ---
OPENING NOTE ASSUMED CARE OF PT IN ROOM 263. PT INTUBATED AND SEDATED, SEE IV SPREADSHEET FOR TITRATION. BREATHING EVEN AND UNLABORED, POX 99%. COMPLETE PHYSICAL ASSESSMENT UNDER INTERVENTIONS. BED LOCKED FOR SAFETY AND PT CONNECTED TO MONITOR. ALL ALARMS IN PLACE. AWAITING CALL BACK FROM MD FOR ORDERS.
[2020-03-31] MEDS: METOPROLOL TARTRATE 50 MG TAB PO SCH (09:03)
[2020-03-31] MEDS: methylPREDNISolone SOD SUCC 40 MG/ML VL IV SCH (09:20)
[2020-03-31] MEDS: cefTRIAXone 1GM/50ML D5W 50 ML IV SCH (09:20)
[2020-03-31] MEDS: ZINC SULFATE 220mg CAP or TAB PO SCH (09:21)
[2020-03-31] MEDS: SODIUM BICARBONATE 650 MG TAB PO SCH (09:21)
[2020-03-31] MEDS: ASCORBIC ACID 1,000 MG TAB PO SCH (09:21)
[2020-03-31] MEDS: CHOLECALCIFEROL (VITD3) 2,000 UNIT CAP PO SCH (09:21)
[2020-03-31] MEDS: APIXABAN 5 MG TAB PO SCH (09:22)
[2020-03-31] MEDS ORDERED: EPINEPHrine HCL 250 ML IV ONE (09:53)
[2020-03-31] MEDS: BUDESONIDE (INHALATION) 180 MCG IH IN SCH (10:00)
[2020-03-31] MEDS: INSULIN LANTUS (GLARGINE) 1 /0.01ml (100units/ml) SC SCH (10:00)
[2020-03-31] MEDS: AMIODARONE HCL 200 MG TAB PO SCH (10:00)
[2020-03-31] MEDS ORDERED: FUROSEMIDE 20 MG/2 ML VIAL ONE (10:06)
[2020-03-31] MEDS ORDERED: FUROSEMIDE 20 MG/2 ML VIAL IV ONE (10:15)
[2020-03-31] MEDS ORDERED: EPINEPHrine HCL 250 ML IV SCH (10:15)
[2020-03-31] MEDS ORDERED: SODIUM BICARB 50ML SYR 75 ML in SOD CHL 0.45% 1,000 ML IV SCH (10:30)
[2020-03-31] MEDS ORDERED: InsuLIN REG 1unit/0.01ml Soln (100units/ml) IV ONE (10:45)
[2020-03-31] MEDS ORDERED: DEXTROSE (50%) 50ML SYRG IV ONE (10:45)
[2020-03-31] MEDS ORDERED: ALBUTEROL SULF 2.5 MG/0.5ML(0.5%) NEB SOLN NEB ONE (10:45)
[2020-03-31] MEDS: SODIUM ZIRCONIUM CYCL 10 GM PAK PO SCH (11:14)
[2020-03-31] MEDS: FERROUS SULFATE 325 MG TAB PO SCH (11:14)
[2020-03-31] MEDS ORDERED: VASOPRESSIN 50 UNITS in D5W 5% 247.5 ML IV SCH (11:30)
[2020-03-31] MEDS ORDERED: NOREPINEPHRINE BITARTRATE 16 MG in SODIUM CHL 0.9% 250 ML IV SCH (11:45)
[2020-03-31] MEDS ORDERED: SODIUM CHL 0.9% 1000 ML BAG XX ONE (12:00)
--- NOTE | 2020-03-31 12:20 | NUR ---
PT POSITIONING UNABLE TO TURN PT. DESATURATES AND BLOOD PRESSURES UNSTABLE.
--- NOTE | 2020-03-31 12:41 | NUR ---
SPOKE WITH GOT OFF PHONE WITH MD PEARSON. INFORMED OF WHO IS ALERT AND ORIENTED, STATING DOES NOT WANT ANY ADDITIONAL LIFE SAVING MEASURES.
--- NOTE | 2020-03-31 12:50 | NUR ---
MD PAGED LEFT VOICEMAIL FOR PULMONARY MD, INFORMING OF WANTING TO CHANGE STATUS TO MDNR. SERGING MACHINE OPERATOR INFORMED OF NOT WANTING DIALYSIS, NO NEW ORDERS RECEIVED.
--- NOTE | 2020-03-31 13:23 | NUR ---
Hold P.T. until new order received.
[2020-03-31 13:36] LABS: Band Neutrophils % (manual) 7; Lymphocytes % (manual) 2 (10.0-50.0); Metamyelocytes % 3; Myelocytes % 1
[2020-03-31] MEDS ORDERED: SODIUM BICARBONATE 8.4 % INJ 50ML VIAL IV ONE (14:45)
--- NOTE | 2020-03-31 15:00 | NUR ---
VS ATTEMPTED TO TRANSFER ALL VITAL SIGNS, COMPUTER SYSTEM UNABLE TO APPROPRIATELY TRANSFER ALL BPS. NOTE MADE TO INFORM OF THAT ERROR.
--- NOTE | 2020-03-31 15:20 | NUR ---
AT BEDSIDE MD PAYTON IN ROOM, TO PRONOUNCE TIME OF .
--- NOTE | 2020-03-31 15:30 | NUR ---
SPOKE WITH INFORMED OF PT PASSING. STATED WILL CHUTE GREASER BELONGINGS TOMORROW MORNING. WILL INFORM CHRISTOPHER RN.
--- NOTE | 2020-03-31 15:53 | NUR ---
[facility] CALLED, , PT NOT A CANDIDATE DUE TO COVID. MESSAGE LEFT WITH [facility], AWAITING CALL BACK.
--- NOTE | 2020-03-31 17:00 | NUR ---
DISPLAY DESIGNER CALL BACK . BODY RELEASED.
[2020-03-31] MEDS ORDERED: EPOETIN ALFA 10,000 UNIT/1 ML VIAL SC ONE (21:00)
[2020-03-31] MEDS ORDERED: SODIUM BICARBONATE 8.4% INJ 50ML SYRINGE IV ONE (21:34)
[2020-03-31] MEDS ORDERED: EPINEPHrine HCL 1 MG/10 ML SYRG IV ONE (21:34)
[2020-03-31] MEDS ORDERED: CALCIUM CHLOR(10%) 100MG/ML 10ML SYRINGE IV ONE (21:34)
--- NOTE | 2020-04-01 09:49 | NUR ---
PT PERSONAL BELONGINGS : RING, NECKLACE AND CLOTHES GIVEN TO . I ASKED IF THERE IS ANY ITEM MISSING AND SAID " EVERYTHING IS HERE ".
[2020-04-02 13:43] LABS: Hepatitis A Ab IgM Negative
[2020-04-02 13:44] LABS: Hepatitis B Core IgM Negative; Hepatitis B Surface Antigen Negative (Negative); Hepatitis C Antibody Negative (Negative)
== END 2020-03-31 15:20 | disposition expired | DRG 871 ==
LOC: ER 09:59 → EDBD 09:59 → TELE 10:00 → DOU IN ICU 14:18 → TELE-EAST 03-30 20:22 → ICU CENTRL 03-31 05:45 → DOU IN ICU 03-31 06:32
PROVIDERS: ADMIT Hospitalist; ATTEND Hospitalist
PROC: 05HB33Z Insertion of Infusion Device into Right Basilic Vein, Percutaneous Approach (ICD-10-PCS; 2020-03-23)
PROC: B54MZZA Ultrasonography of Right Upper Extremity Veins, Guidance (ICD-10-PCS; 2020-03-23)
PROC: 5A12012 Performance of Cardiac Output, Single, Manual (ICD-10-PCS; principal; 2020-03-31)
PROC: 5A1935Z Respiratory Ventilation, Less than 24 Consecutive Hours (ICD-10-PCS; 2020-03-31)
PROC: 06HN33Z Insertion of Infusion Device into Left Femoral Vein, Percutaneous Approach (ICD-10-PCS; 2020-03-31)
PROC: 4A143B0 Monitoring of Venous Pressure, Central, Percutaneous Approach (ICD-10-PCS; 2020-03-31)
PROC: 0BH17EZ Insertion of Endotracheal Airway into Trachea, Via Natural or Artificial Opening (ICD-10-PCS; 2020-03-31)
DX: A41.9 Sepsis, unspecified organism (principal); U07.1 COVID-19; J12.89 Other viral pneumonia; J96.01 Acute respiratory failure with hypoxia; N17.0 Acute kidney failure with tubular necrosis; J98.11 Atelectasis; D68.4 Acquired coagulation factor deficiency; I48.20 Chronic atrial fibrillation, unspecified; I13.0 Hypertensive heart and chronic kidney disease with heart failure and stage 1 through stage 4 chronic kidney disease, or unspecified chronic kidney disease; I48.92 Unspecified atrial flutter; Z66 Do not resuscitate; L89.152 Pressure ulcer of sacral region, stage 2; E87.5 Hyperkalemia; R79.82 Elevated C-reactive protein (CRP); N18.30 Chronic kidney disease, stage 3 unspecified; D75.1 Secondary polycythemia; E78.5 Hyperlipidemia, unspecified; E88.09 Other disorders of plasma-protein metabolism, not elsewhere classified; E83.39 Other disorders of phosphorus metabolism; E10.65 Type 1 diabetes mellitus with hyperglycemia; E10.22 Type 1 diabetes mellitus with diabetic chronic kidney disease; D64.9 Anemia, unspecified; I25.10 Atherosclerotic heart disease of native coronary artery without angina pectoris; I46.9 Cardiac arrest, cause unspecified; I50.9 Heart failure, unspecified; T38.0X5A Adverse effect of glucocorticoids and synthetic analogues, initial encounter; Y92.89 Other specified places as the place of occurrence of the external cause; Z51.5 Encounter for palliative care; Z79.01 Long term (current) use of anticoagulants; Z79.4 Long term (current) use of insulin; Z82.49 Family history of ischemic heart disease and other diseases of the circulatory system; Z83.3 Family history of diabetes mellitus; Z86.19 Personal history of other infectious and parasitic diseases; Z86.718 Personal history of other venous thrombosis and embolism; Z99.81 Dependence on supplemental oxygen
CPT/HCPCS: 36415; 36600; 71045; 76775; 80048; 80053; 80074; 80202; 81001; 82550; 82565; 82570; 82728; 82805; 82962; 83605; 83615; 83735; 83880; 84100; 84132; 84156; 84300; 84443; 84484; 84550; 85007; 85025; 85027; 85379; 86141; 86850; 86900; 86901; 86920; 87040; 87070; 87205; 92950; 93005; 94002; 94640; 96374; 96375; G0378; J0171; J0610; J0696; J0885; J1100; J1815; J2250; J2405; J2543; J3490; J7060; P9047